=== PATIENT | female | born 1950 | race Caucasian/White ===

== ENCOUNTER → 2024-06-16 | Outpatient (CLI) | payer MEDICARE, BC, SELFPAY ==
[2024-06-16 08:22] LABS: Collection Type, Urine Clean Catch
[2024-06-16 09:09] LABS: Bilirubin,Urine Negative (Negative); Blood,Urine Negative (Negative); Clarity,Urine Clear (Clear/Hazy); Color,Urine Lt-Yellow (Lt Yel-Yel); Glucose, Urine Negative (Negative); Ketones,Urine Negative (Negative); Leukocyte Esterase,Urine Negative (Negative); Nitrite,Urine Negative (Negative); PH,Urine 6.5 (5.0-7.0); Protein,Urine Negative (Neg - Trace); RBC,Urine 3 /hpf (0-3); Specific Gravity,Urine 1.015 (1.001-1.035); Squamous Epithelial Cell,Urine 1 /hpf (0-5); Urobilinogen,Urine Negative mg/dL (0.0-1.0); WBC,Urine < 1 /hpf (0-5)
[2024-06-16 09:11] LABS: Basophils # (Auto) 0.1 Thou/mm3 (0.0-0.2); Basophils % (Auto) 1 % (0-2.5); Eosinophils # (Auto) 0.1 Thou/mm3 (0.0-0.5); Eosinophils % (Auto) 1 % (0-10); Hematocrit 39.1 % (36.0-46.0); Hemoglobin 12.6 g/dL (12.0-16.0); Immature Granulocytes % (Auto) 1 % (0-0); Immature Granulocytes Auto 0.05 Thou/mm3 (0.00-0.00); Lymphocytes # (Auto) 1.5 Thou/mm3 (1.0-4.8); Lymphocytes % (Auto) 18 % (10-50); Mean Corpuscular HGB Conc 32.2 g/dl (31.0-37.0); Mean Corpuscular Hemoglobin 28.8 pg (25.0-35.0); Mean Corpuscular Volume 90 fL (80-100); Monocytes # (Auto) 0.7 Thou/mm3 (0.0-0.8); Monocytes % (Auto) 8 % (0-12); Neutrophils # (Auto) 5.9 Thou/mm3 (1.8-7.7); Neutrophils % (Auto) 71 % (37-80); Nucleated Red Blood Cell % 0 /100 WBC (0); Platelet Count 424 Thou/mm3 (140-440); RDW Standard Deviation 46.2 fL (36.4-46.3); Red Blood Count 4.37 Miln/mm3 (4.00-5.20); White Blood Count 8.3 Thou/mm3 (3.6-11.0)
[2024-06-16 09:25] LABS: Parathyroid Hormone Intact 70.7 pg/ml (18.5-88.0)
[2024-06-16 09:29] LABS: Alanine Aminotransferase 26 U/L (10-49); Albumin, Serum 4.7 gm/dL (3.4-4.8); Albumin/Globulin Ratio 2.6 (1.2-2.2); Alkaline Phosphatase 108 U/L (46-116); Anion Gap 6 (7-16); Aspartate Amino Transferase 28 U/L (0-34); BUN/Creatinine Ratio 20 Ratio (12-20); Bilirubin,Total 0.6 mg/dL (0.3-1.2); Blood Urea Nitrogen 16 mg/dL (9-23); Calcium 9.9 mg/dL (8.3-10.6); Calcium (Corrected) 9.9 mg/dL (8.5-10.1); Carbon Dioxide 29.4 mMol/L (20.0-31.0); Cardiac Risk Estimate 2.7 RATIO (3.7-5.6); Chloride 98 mMol/L (98-107); Cholesterol 161 mg/dL (132-200); Creatinine (Component) 0.8 mg/dL (0.6-1.3); Globulin 1.8 gm/dL (2.3-3.5); Glucose 95 mg/dL (74-106); HDL Cholesterol 60 mg/dL (40-60); LDL Cholesterol,Calculated 86 mg/dL (0-130); Osmolality,Calculated 267 (275-295); Potassium 4.6 mMol/L (3.4-5.1); Sodium 133 mMol/L (136-145); Thyroid Stimulating Hormone 1.59 uIU/mL (0.55-4.78); Total Protein 6.5 gm/dL (5.7-8.2); Triglycerides 77 mg/dL (30-150); eGFR > 60 See Note
[2024-06-16 09:40] LABS: Vitamin D 25 Hydroxy Total 35.7 ng/mL (7.3-40.2)
== END | disposition home or self-care (01) ==
LOC: COPL 07:27
PROVIDERS: PCP Internal Medicine; Referring Provider Internal Medicine; Visit Provider Internal Medicine
DX: I10 Essential (primary) hypertension (principal); E78.5 Hyperlipidemia, unspecified; E21.0 Primary hyperparathyroidism; E55.9 Vitamin D deficiency, unspecified
CPT/HCPCS: 36415; 80053; 80061; 81001; 82306; 83970; 84443; 85025

== ENCOUNTER → 2024-12-14 | Outpatient (CLI) | payer MEDICARE, BC, SELFPAY ==
[2024-12-14 08:15] LABS: Collection Type, Urine Clean Catch
[2024-12-14 08:55] LABS: Basophils # (Auto) 0.1 Thou/mm3 (0.0-0.2); Basophils % (Auto) 2 % (0-2.5); Eosinophils # (Auto) 0.1 Thou/mm3 (0.0-0.5); Eosinophils % (Auto) 1 % (0-10); Hematocrit 35.8 % (36.0-46.0); Hemoglobin 12.1 g/dL (12.0-16.0); Immature Granulocytes % (Auto) 1 % (0-0); Immature Granulocytes Auto 0.03 Thou/mm3 (0.00-0.00); Lymphocytes # (Auto) 1.1 Thou/mm3 (1.0-4.8); Lymphocytes % (Auto) 17 % (10-50); Mean Corpuscular HGB Conc 33.8 g/dl (31.0-37.0); Mean Corpuscular Hemoglobin 29.2 pg (25.0-35.0); Mean Corpuscular Volume 87 fL (80-100); Monocytes # (Auto) 0.6 Thou/mm3 (0.0-0.8); Monocytes % (Auto) 10 % (0-12); Neutrophils # (Auto) 4.4 Thou/mm3 (1.8-7.7); Neutrophils % (Auto) 70 % (37-80); Nucleated Red Blood Cell % 0 /100 WBC (0); Platelet Count 394 Thou/mm3 (140-440); Red Blood Count 4.14 Miln/mm3 (4.00-5.20); White Blood Count 6.3 Thou/mm3 (3.6-11.0)
[2024-12-14 08:58] LABS: Bilirubin,Urine Negative (Negative); Blood,Urine Negative (Negative); Clarity,Urine Clear (Clear/Hazy); Color,Urine Lt-Yellow (Lt Yel-Yel); Glucose, Urine Negative (Negative); Ketones,Urine Negative (Negative); Leukocyte Esterase,Urine Negative (Negative); Nitrite,Urine Negative (Negative); PH,Urine 6.5 (5.0-7.0); Protein,Urine Negative (Neg - Trace); RBC,Urine 2 /hpf (0-3); Specific Gravity,Urine 1.012 (1.001-1.035); Squamous Epithelial Cell,Urine < 1 /hpf (0-5); Urobilinogen,Urine Negative mg/dL (0.0-1.0); WBC,Urine < 1 /hpf (0-5)
[2024-12-14 09:05] LABS: Alanine Aminotransferase 22 U/L (10-49); Albumin, Serum 4.2 gm/dL (3.4-4.8); Albumin/Globulin Ratio 2.8 (1.2-2.2); Alkaline Phosphatase 123 U/L (46-116); Anion Gap 10 (7-16); Aspartate Amino Transferase 29 U/L (0-34); BUN/Creatinine Ratio 19 Ratio (12-20); Bilirubin,Total 0.5 mg/dL (0.3-1.2); Blood Urea Nitrogen 13 mg/dL (9-23); Calcium 8.8 mg/dL (8.3-10.6); Calcium (Corrected) 8.8 mg/dL (8.5-10.1); Carbon Dioxide 27.2 mMol/L (20.0-31.0); Cardiac Risk Estimate 2.3 RATIO (3.7-5.6); Chloride 99 mMol/L (98-107); Cholesterol 139 mg/dL (132-200); Creatinine (Component) 0.7 mg/dL (0.6-1.3); Globulin 1.5 gm/dL (2.3-3.5); Glucose 103 mg/dL (74-106); HDL Cholesterol 60 mg/dL (40-60); LDL Cholesterol,Calculated 70 mg/dL (0-130); Osmolality,Calculated 272 (275-295); Potassium 4.3 mMol/L (3.4-5.1); Sodium 136 mMol/L (136-145); Thyroid Stimulating Hormone 1.27 uIU/mL (0.55-4.78); Total Protein 5.7 gm/dL (5.7-8.2); Triglycerides 45 mg/dL (30-150); eGFR > 60 See Note
[2024-12-14 09:06] LABS: Vitamin D 25 Hydroxy Total 41.3 ng/mL (7.3-40.2)
[2024-12-14 09:07] LABS: Parathyroid Hormone Intact 60.8 pg/ml (18.5-88.0)
== END | disposition home or self-care (01) ==
LOC: COPL 07:44
PROVIDERS: PCP Internal Medicine; Referring Provider Internal Medicine; Visit Provider Internal Medicine
DX: E21.0 Primary hyperparathyroidism (principal); E55.9 Vitamin D deficiency, unspecified; E78.5 Hyperlipidemia, unspecified; I10 Essential (primary) hypertension
CPT/HCPCS: 36415; 80053; 80061; 81001; 82306; 83970; 84443; 85025

== ENCOUNTER 2024-12-22 16:29 | Inpatient (IN) | payer MEDICARE, BC, SELFPAY ==
[2024-12-22] VITALS (15 sets, daily range): BP systolic 142–180; BP diastolic 68–112; PULSE 101–133; RESP 18–90; TEMP 36.7–37.7; O2SAT 92–96; BMI 26.6
--- NOTE | 2024-12-22 16:32 | EKG_ITS ---
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
--- NOTE | 2024-12-22 16:32 | XR_ITS ---
Examination: AP chest single view TECHNIQUE: AP chest single view Date and time: December 22, 2024 1903 hours Comparison October 16, 2014 INDICATIONS: Sepsis alert today FINDINGS: Diffuse significant left lung pneumonia Mild prominence left ventricle Mild vascular congestion Prominent osteopenia IMPRESSION: Diffuse significant left lung pneumonia
--- NOTE | 2024-12-22 16:46 | EDNOTE_ITS ---
<Statement entered by Chaya Ramirez MD - 12/23/24 18:28> As co-signing physician, I was present and available for consult prn. I concur with the plan and care as documented by the midlevel provider. Altered Mental Status RME/HPI General Chief Complaint: Altered Mental Status Stated Complaint: ALTERED MENTAL STATUS Time Seen by Provider: 12/22/24 16:32 Arrival date/time: 12/22/24 16:29 RME / HPI RME / HPI narrative: 74-year-old female patient with significant history of COPD hypertension, was brought in by EMS for evaluation regarding worsening cough. Patient is having worsening cough for the last 4 days, associated with fever, poor appetite, not feeling well, and mild confusion. Patient denies any chest pain, denies any abdominal pain, but also complained of diarrhea nonbloody. Denies any vomiting. On my initial evaluation patient was noted to be febrile and tachycardic. Sepsis alert was initiated right away. Related Data Home Medications ?Medication ?Instructions ?Recorded ?Confirmed atorvastatin 10 mg tablet (Lipitor) 10 mg PO HS High C holesterol #0 04/19/15 tabs Atorvastatin Calcium 10 ##90 02/19/16 Benazepril Hcl/Hctz 20-12.5 * 20 ##30 02/19/16 (LOTENSIN HCT 20-12.5 *) lorazepam 0.5 mg tablet 0.5 ##30 02/19/16 Previous Rx's ?Medication ?Instructions ?Recorded Hydrocodone/Acetaminophen * (NORCO 1 tab PO Q6H PRN AB DOMINAL PAIN 02/20/16 5/325 *) #20 tabs Allergies Allergy/AdvReac Type Severity Reaction Status Date / Time labetalol Allergy Severe SIZURES Verified 02/19/16 19:51 TAPE AdvReac Intermediate blisters Uncoded 02/19/16 15:15 Review of Systems Review of Systems Narrative Review of Systems: Review of system reviewed and within normal limits except mentioned in HPI ED Exam Narrative Physical exam: VITAL SIGNS: Reviewed. GENERAL APPEARANCE: Alert and interactive, follows commands, no acute distress, febrile HEAD AND FACE: Non-traumatic. ENT: PERRL, pink conjunctivitis, eyelid no trauma, Mucous membrane moist. NECK: Supple, nontender, no nuchal rigidity. CHEST: No tenderness, no crepitus, no paradoxical movement, no retractions. LUNGS: Clear, well ventilated, symmetric, no rales, no wheezing, no ronchi, no stridor, good breath sounds bilaterally. HEART: Tachycardic, no murmur, no gallops. ABDOMEN: Soft, positive bowel sounds, nondistended, no guarding, nontender, no rebound, no masses, RECTAL: Deferred. GENITAL: Deferred. NEUROLOGICAL: Gross motor function intact sensory function intact, Appropriate for age. MUSCULOSKELETAL: low back nontender, full range of motion. EXTREMITIES: Nontender, full range of motion. SKIN: Color pink, dry, no rash, no lacerations, no abrasions, no contusions. LYMPHATICS: Deferred. 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 12/22/24 16:32 Active Continuous Pulse Oximetry STAT Care 12/22/24 16:32 Completed Decision to Admit X1 Care 12/22/24 16:43 Completed EKG (ED ONLY) *Do not use* NOW Care 12/22/24 16:32 Completed In and Out Catheter X1PRN Care 12/22/24 16:32 Completed Insert IV NOW Care 12/22/24 16:32 Active NPO STAT Care 12/22/24 16:32 Active Strict Intake and Output Routine Care 12/22/24 16:32 Ordered EKG (ED Only) Stat Exams 12/22/24 16:32 Draft XR chest 1V SEPSIS PROTOCOL Stat Exams 12/22/24 16:32 Completed B-Type Natriuretic Peptide Stat Lab 12/22/24 16:50 Completed Blood Culture (Lab) Stat Lab 12/22/24 16:53 Received CBC Stat Lab 12/22/24 16:50 Completed Comprehensive Metabolic Panel Stat Lab 12/22/24 16:50 Completed LDH (Lactate Dehydrogenase) Stat Lab 12/22/24 16:50 Completed Lactate (Lactic Acid) Stat Lab 12/22/24 16:50 Completed Lipase Stat Lab 12/22/24 16:50 Completed Magnesium Stat Lab 12/22/24 16:50 Completed Partial Thromboplastin Time Stat Lab 12/22/24 16:50 Completed Phosphorous Stat Lab 12/22/24 16:50 Completed Procalcitonin Stat Lab 12/22/24 16:50 Completed Prothrombin Time with INR Stat Lab 12/22/24 16:50 Completed Troponin I Stat Lab 12/22/24 16:50 Completed Urinalysis Stat Lab 12/22/24 18:43 Completed Urine Culture Stat Lab 12/22/24 18:43 Received Acetaminophen Tab [Tylenol ES Tab] Med 12/22/24 16:42 Discontinued 1,000 mg PO X1 ONE Azithromycin Inj [Zithromax Inj] 500 mg Med 12/22/24 16:43 Discontinued Sodium Chloride 0.9% 250 ml [Ns] 250 ml IV X1 Ringers Lactated 1000 ml [Lactated Ringers] 1,000 ml Med 12/22/24 16:43 Discontinued IV 999 mls/hr cefTRIAXone/D5w 1gm IV premix [Rocephin/D5w 1gm IV Med 12/22/24 16:33 Discontinued premix] 1 gm in 50 ml IV X1 Oxygen Delivery NOW RT 12/22/24 16:32 Active Vital Signs Vital signs: Vital Signs Pulse Rate 133 H 12/22/24 16:38 Altered Mental Status MDM Narrative MDM Narrative:: 74-year-old female patient with significant history of COPD hypertension, was brought in by EMS for evaluation regarding worsening cough. Patient is having worsening cough for the last 4 days, associated with fever, poor appetite, not feeling well, and mild confusion. Patient denies any chest pain, denies any abdominal pain, but also complained of diarrhea nonbloody. Denies any vomiting. On my initial evaluation patient was noted to be febrile and tachycardic. Sepsis alert was initiated right away. EKG as interpreted by me showed sinus tachycardia, ventricular rate of [address] segment elevation or depression noted. CBC showed 15.4 leukocytosis, sodium 124, magnesium 1.4 troponin 0.108 Pro-Skip 1.18 urinalysis initially the patient's presentation was very concerning for a multitude of possible potentially serious differential diagnosis including UTI, PID STD and Acute Pyelonephritis but after an in depth review of systems, focused physical exam and U/A showed significant WBC suggestive of UTI and appears to be safe for discharge and treatment as an outpatient. Chest x-ray with pneumonia Patient was given IV fluids, Tylenol, IV ceftriaxone and IV Zosyn. Case discussed with Dr. Costa who admitted the patient Patient data External records reviewed:: None Clinical information provided by:: patient Social determinants that could affect healthcare access:: none Patient has the following chronic illnesses:: Hypertension How is presenting disease/condition affected by chronic disease/condition?: exacerbated by Evaluation data The following diagnostics were reviewed and interpreted by me:: lab results and radiology exam(s) Lab and/or radiology exams considered but not ordered:: See results MDM Interpretation Summary: See results MDM Medications / Prescriptions Medications or Prescriptions considered but not ordered:: None Medication administrations:: Medication Administration History Acetaminophen (Acetaminophen 325 Mg Tablet) 650 mg PO Q6H PRN PRN Reason: PAIN 1-3 OR FEVER > 101 Stop: 01/21/25 17:58 Amlodipine Besylate (Amlodipine Besylate 5 Mg Tablet) 5 mg PO QDAY [facility] Stop: 01/22/25 08:59 Aspirin (Aspirin Ec 81 Mg Tabec) 81 mg PO DAILY BARI Stop: 01/21/25 21:19 Last Admin: 12/22/24 22:15 Dose: 81 mg Documented By: EE Enoxaparin Sodium (Enoxaparin Sod Inj 40 Mg/0.4 Ml Syringe) 40 mg SC QDAY [facility] Stop: 01/06/25 08:59 Famotidine (Famotidine Inj 10 Mg/Ml Vial 2 Ml) 20 mg IVP BID BARI Stop: 01/21/25 20:59 Last Admin: 12/22/24 22:14 Dose: 20 mg Documented By: EE Hydralazine HCl (Hydralazine Inj 20 Mg/Ml Vial) 10 mg IVP Q6HR PRN PRN Reason: SBP>170 Stop: 01/21/25 18:21 Hydralazine HCl (Hydralazine Hcl 25 Mg Tablet) 50 mg PO TID BARI Stop: 01/21/25 21:59 Last Admin: 12/22/24 22:15 Dose: 50 mg Documented By: EE Ceftriaxone Sodium/Dextrose (Rocephin/D5w 1gm Iv Premix) 1 gm in 50 mls @ 100 mls/hr IV QDAY [facility]I Stop: 12/30/24 08:59 Azithromycin 500 mg/ Sodium (Chloride) 250 mls @ 250 mls/hr IV QDAY@2100 [facility]I Stop: 12/30/24 20:59 Potassium Phosphate (Pot Phos 15 Mmol In Ns 250 Ml) 15 mmol in 250 mls @ 62.5 mls/hr IV Q4H BARI Stop: 12/23/24 02:11 Last Admin: 12/22/24 23:11 Dose: 62.5 mls/hr Documented By: Infusion: 12/22/24 22:31 Dose: Infused Documented By: Admin: 12/22/24 18:31 Dose: 62.5 mls/hr Documented By: DO Ipratropium [place] (Ipratropium Rt 0.5 Mg/ 2.5 Ml Nebu) 0.5 mg INH Q8HRRT BARI Stop: 01/21/25 21:59 Last Admin: 12/22/24 22:18 Dose: 0.5 mg Documented By: SIDNEY Levalbuterol HCl (Levalbuterol Rt 0.63 Mg/3 Ml Nebu) 0.63 mg INH Q8HR BARI Stop: 01/21/25 21:59 Last Admin: 12/22/24 22:18 Dose: 0.63 mg Documented By: SIDNEY Methylprednisolone Sodium Succinate (Methylprednisolone Sod Succ 40 Mg Vial) 40 mg IVP QDAY [facility] Stop: 12/29/24 18:14 Last Admin: 12/22/24 18:22 Dose: 40 mg Documented By: DO Ondansetron HCl (Ondansetron Inj 2 Mg/Ml Inj 2 Ml) 4 mg IV Q6H PRN; Protocol PRN Reason: NAUSEA OR VOMITING Stop: 01/21/25 17:58 Sennosides (Senna Tablet) 2 tab PO BID PRN; Protocol PRN Reason: CONSTIPATION Stop: 01/21/25 17:58 Valsartan (Valsartan 80 Mg Tablet) 80 mg PO DAILY [facility] Stop: 01/22/25 08:59 Discontinued Medications Acetaminophen (Acetaminophen 500 Mg Tablet) 1,000 mg PO X1 ONE Stop: 12/22/24 16:43 Last Admin: 12/22/24 16:56 Dose: 1,000 mg Documented By: DO Ceftriaxone Sodium/Dextrose (Rocephin/D5w 1gm Iv Premix) 1 gm in 50 mls @ 100 mls/hr IV X1 ONE Stop: 12/22/24 17:02 Last Infusion: 12/22/24 17:19 Dose: Infused Documented By: Admin: 12/22/24 16:58 Dose: 100 mls/hr Documented By: DO Azithromycin 500 mg/ Sodium (Chloride) 250 mls @ 250 mls/hr IV X1 ONE Stop: 12/22/24 17:42 Last Infusion: 12/22/24 18:18 Dose: Infused Documented By: Admin: 12/22/24 17:18 Dose: 250 mls/hr Documented By: SONA Lactated Ringer's (Lactated Ringers) 1,000 mls @ 999 mls/hr IV .Q1H1M ONE Stop: 12/22/24 17:43 Last Infusion: 12/22/24 18:00 Dose: Infused Documented By: Admin: 12/22/24 16:59 Dose: 999 mls/hr Documented By: DO Lactated Ringer's (Lactated Ringers) 1,000 mls @ 999 mls/hr IV .Q1H1M ONE Stop: 12/22/24 19:03 Last Infusion: 12/22/24 20:09 Dose: Infused Documented By: Admin: 12/22/24 18:24 Dose: 999 mls/hr Documented By: DO Magnesium Sulfate (Magnesium Sulfate Ivpb) 2 gm in 50 mls @ 25 mls/hr IV X1 ONE Stop: 12/22/24 20:11 Last Infusion: 12/22/24 20:32 Dose: Infused Documented By: Admin: 12/22/24 18:22 Dose: 25 mls/hr Documented By: DO Potassium Chloride (Kcl Ivpb) 10 meq in 100 mls @ 100 mls/hr IV X1 ONE Stop: 12/22/24 19:35 Last Admin: 12/22/24 19:00 Dose: Not Given Documented By: DO Non-Admin Reason: Cancelled by Provider Potassium Chloride (Potassium Chloride 20 Meq Tabcr) 40 meq PO X1 ONE Stop: 12/22/24 18:37 Last Admin: 12/22/24 19:24 Dose: 40 meq Documented By: EE Sodium Chloride (Sodium Chloride Rt 10% 15 Ml Nebu) 5 ml INH X1 ONE Stop: 12/22/24 18:07 Last Admin: 12/22/24 20:59 Dose: 5 ml Documented By: SIDNEY IV fluids, aspiration IV, Zithromax IV and Tylenol. Patient was also given potassium p.o. Consultations Consultation(s) initiated? (list below): No Diagnosis Differential diagnosis altered mental status: altered mental status and sepsis Most likely diagnosis given after review of the tests above:: Sepsis, pneumonia Admission Indicated Admission indicated?: not indicated Admission Request Was there a request for admission?: No Disposition Plan Disposition Plan: Admit Discharge Plan Plan Patient Disposition: Admit Acute Care w/in Hospital Problem List Clinical Impression: Sepsis, Pneumonia
[2024-12-22] MEDS: ACETAMINOPHEN 500 MG TABLET 1000 MG PO (16:56)
[2024-12-22] MEDS: cefTRIAXone/D5w 1gm IV premix 1 GM/50 ML BAG IV (16:58)
[2024-12-22] MEDS: RINGERS LACTATED 1000 ML 1,000 ML 999 ML IV ×2 (16:59→18:24)
[2024-12-22 17:02] LABS: Lactate (Lactic Acid) 1.7 mMol/L (0.4-2.0)
[2024-12-22 17:03] LABS: Basophils % (Auto) 0 % (0-2.5); Eosinophils % (Auto) 0 % (0-10); Hematocrit 37.1 % (36.0-46.0); Hemoglobin 13.5 g/dL (12.0-16.0); Immature Granulocytes % (Auto) 1 % (0-0); Immature Granulocytes Auto 0.09 Thou/mm3 (0.00-0.00); Lymphocytes # (Auto) 0.3 Thou/mm3 (1.0-4.8); Lymphocytes % (Auto) 2 % (10-50); Mean Corpuscular HGB Conc 36.4 g/dl (31.0-37.0); Mean Corpuscular Hemoglobin 28.7 pg (25.0-35.0); Mean Corpuscular Volume 79 fL (80-100); Monocytes # (Auto) 0.9 Thou/mm3 (0.0-0.8); Monocytes % (Auto) 6 % (0-12); Neutrophils # (Auto) 14.1 Thou/mm3 (1.8-7.7); Neutrophils % (Auto) 91 % (37-80); Nucleated Red Blood Cell % 0 /100 WBC (0); Platelet Count 311 Thou/mm3 (140-440); RDW Standard Deviation 39.5 fL (36.4-46.3); Red Blood Count 4.71 Miln/mm3 (4.00-5.20); White Blood Count 15.4 Thou/mm3 (3.6-11.0)
[2024-12-22] MEDS: AZITHROMYCIN INJ 500 MG in SODIUM CHLORIDE 0.9% 250 ML 250 ML 250 MG IV (17:18)
[2024-12-22 17:25] LABS: B-Type Natriuretic Peptide 153 pg/mL (0-100)
[2024-12-22 17:33] LABS: Alanine Aminotransferase 44 U/L (10-49); Albumin, Serum 4.3 gm/dL (3.4-4.8); Albumin/Globulin Ratio 1.7 (1.2-2.2); Alkaline Phosphatase 91 U/L (46-116); Anion Gap 13 (7-16); Aspartate Amino Transferase 103 U/L (0-34); BUN/Creatinine Ratio 19 Ratio (12-20); Bilirubin,Total 0.6 mg/dL (0.3-1.2); Blood Urea Nitrogen 19 mg/dL (9-23); Calcium 10.1 mg/dL (8.3-10.6); Calcium (Corrected) 10.1 mg/dL (8.5-10.1); Carbon Dioxide 24.4 mMol/L (20.0-31.0); Chloride 83 mMol/L (98-107); Estimated Creatinine Clearance 42.3 mL/min (>60); Globulin 2.5 gm/dL (2.3-3.5); Glucose 119 mg/dL (74-106); LDH (Lactate Dehydrogenase) 262 U/L (120-246); Lipase 31 U/L (12-53); Magnesium 1.4 mg/dL (1.6-2.6); Osmolality,Calculated 245 (275-295); Phosphorous 1.3 mg/dL (2.4-5.1); Potassium 2.8 mMol/L (3.4-5.1); Procalcitonin 1.18 ng/ml (0.0-0.49); Sodium 120 mMol/L (136-145); Total Protein 6.8 gm/dL (5.7-8.2); eGFR 59 See Note
[2024-12-22 17:45] LABS: Partial Thromboplastin Time 31.1 Seconds (22.0-36.0); Prothrombin Time 10.9 Seconds (9.0-12.2)
--- NOTE | 2024-12-22 18:09 | PD.RESHP ---
Documentation for date of: 12/22/24 [facility] History of Present Illness Chief complaint: AMS, weakness History of present illness: The patient is a 74-year-old female with a past medical history of hypertension, hyper parathyroidism and COPD, brought to emergency by ambulance, complaining of severe nausea and inability to eat or drink. Patient reported that she has not eaten in 4 days . Reported having cough with excessive phlegm production and fever for the past few days, reported nausea but no vomiting, did report diarrhea, multiple loose stools per day but denied blood in stools. Patient had reached out to primary care physician yesterday about excessive cough and was prescribed amoxicillin, but became concerned when patient became too weak and more lethargic than her baseline. At the time of evaluation, patient was able to give a brief history of her symptoms, is able to follow simple commands and is alert and oriented. The patient was also complaining of fever and excessive cough, mucus production for the past few days, was given outpatient amoxicillin by PCP yesterday, but condition deteriorated, per the patient is more lethargic today. Was brought to the emergency room by ambulance. EMS found patient saturating 90% on room air started her on 3 L nasal cannula oxygen which improved O2 sats to 94%. Sepsis alert was called in the emergency room, IV antibiotics given, blood and sputum cultures ordered, 2 L IV fluid boluses given. Initial labs show leukocytosis, tachycardia heart rate in the 130s, likely secondary to sepsis, Pro-Skip elevated, lactic acid 1.7. Past medical history: Primary yperparathyroidism, hypertension, COPD, hyperlipidemia, anxiety Past surgical history: History of hysterectomy Social history: Current smoker Review of Systems Review of Systems Narrative Review of Systems: General: Denies fevers or chills HEENT: Denies congestion or sore throat Heart: Denies chest pain or palpitations Lungs: See H/p for details Abdomen: See H/p for details Genitourinary: Denies frequency, urgency, dysuria, or hematuria Musculoskeletal: Denies joint pain, denies muscular pain Neurology: Denies any numbness, tingling Review of systems otherwise negative except what is mentioned above. Past Medical History Past Medical History CARDIAC: Positive Hypertension; Negative Congestive Heart Failure RESPIRATORY: Positive Chronic Obstructive Pulmonary Disease (COPD) GENITOURINARY: Negative Renal Disease ENDOCRINE: Negative Diabetes Mellitus Type 1 or Diabetes Mellitus Type 2 Social History SMOKING STATUS: Current every day smoker Exam Vital Signs Temp Pulse Resp BP Pulse Ox O2 Del Method 99.8 F 115 H 19 148/75 H 95 Room Air 12/22/24 18:03 12/22/24 18:03 12/22/24 18:03 12/22/24 18:03 12/22/24 18:03 12/22/24 18:03 Narrative Exam General: AOx3, cooperative but lethargic, GCS 15/15 Skin: Intact, no cyanosis or edema noted. HEENT: Atraumatic/normocephalic, ADELINE, neck supple Heart: RRR, S1 and S2 without clicks or murmurs Lungs: Rhonchi bilaterally on ascultation Abdomen: Soft, nontender. Bowel sounds present . Vascular: Peripheral pulses palpable Neuro: No focal neurological deficits noted. Results: Labs 12/22/24 16:50 12/22/24 16:50 Labs: Short CBC 12/22/24 Range/Units 16:50 WBC 15.4 H (3.6-11.0) Thou/mm3 Hgb 13.5 (12.0-16.0) g/dL Hct 37.1 (36.0-46.0) % Plt Count 311 D (140-440) Thou/mm3 BMP 12/22/24 16:50 Sodium 120 L Potassium 2.8 L Chloride 83 L Carbon Dioxide 24.4 BUN 19 Creatinine 1.0 Glucose 119 H Calcium 10.1 Cardiac Enzymes 12/22/24 Range/Units 16:50 Troponin I 0.130 H* (0.0-0.045) ng/mL Liver Function 12/22/24 Range/Units 16:50 Total Bilirubin 0.6 (0.3-1.2) mg/dL AST 103 H (0-34) U/L ALT 44 (10-49) U/L Alkaline Phosphatase 91 (46-116) U/L Albumin 4.3 (3.4-4.8) gm/dL Quality Measures Quality Measures VTE prophylaxis Advance care planning discussed with:: patient Medications Home Medications and Allergies Home Medications ?Medication ?Instructions ?Recorded ?Confirmed ?Type atorvastatin 10 mg tablet (Lipitor) 10 mg PO HS High Cholesterol #0 04/19/15 History tabs Atorvastatin Calcium 10 ##90 02/19/16 History Benazepril Hcl/Hctz 20-12.5 * 20 ##30 02/19/16 History (LOTENSIN HCT 20-12.5 *) lorazepam 0.5 mg tablet 0.5 ##30 02/19/16 History Allergies Allergy/AdvReac Type Severity Reaction Status Date / Time labetalol Allergy Severe SIZURES Verified 02/19/16 19:51 TAPE AdvReac Intermediate blisters Uncoded 02/19/16 15:15 Visit Medications Acetaminophen (Acetaminophen 325 Mg Tablet) 650 mg PO Q6H PRN PRN Reason: PAIN 1-3 OR FEVER > 101 Stop: 01/21/25 17:58 Enoxaparin Sodium (Enoxaparin Sod Inj 40 Mg/0.4 Ml Syringe) 40 mg SC QDAY [facility] Stop: 01/06/25 08:59 Famotidine (Famotidine Inj 10 Mg/Ml Vial 2 Ml) 20 mg IVP BID [facility]I Stop: 01/21/25 20:59 Lactated Ringer's (Lactated Ringers) 1,000 mls @ 999 mls/hr IV .Q1H1M ONE Stop: 12/22/24 19:03 Ceftriaxone Sodium/Dextrose (Rocephin/D5w 1gm Iv Premix) 1 gm in 50 mls @ 100 mls/hr IV QDAY [facility]I Stop: 12/30/24 08:59 Azithromycin 500 mg/ Sodium (Chloride) 250 mls @ 250 mls/hr IV QDAY [facility]I Stop: 12/30/24 08:59 Ipratropium [place] (Ipratropium Rt 0.5 Mg/ 2.5 Ml Nebu) 0.5 mg INH Q8HRRT BARI Stop: 01/21/25 21:59 Levalbuterol HCl (Levalbuterol Rt 0.63 Mg/3 Ml Nebu) 0.63 mg INH Q8HR BARI Stop: 01/21/25 21:59 Methylprednisolone Sodium Succinate (Methylprednisolone Sod Succ 40 Mg Vial) 40 mg IVP QDAY [facility]I Stop: 12/29/24 18:14 Ondansetron HCl (Ondansetron Inj 2 Mg/Ml Inj 2 Ml) 4 mg IV Q6H PRN; Protocol PRN Reason: NAUSEA OR VOMITING Stop: 01/21/25 17:58 Sennosides (Senna Tablet) 2 tab PO BID PRN; Protocol PRN Reason: CONSTIPATION Stop: 01/21/25 17:58 Sodium Chloride (Sodium Chloride Rt 10% 15 Ml Nebu) 5 ml INH X1 ONE Stop: 12/22/24 18:07 Discontinued Medications Acetaminophen (Acetaminophen 500 Mg Tablet) 1,000 mg PO X1 ONE Stop: 12/22/24 16:43 Last Admin: 12/22/24 16:56 Dose: 1,000 mg Ceftriaxone Sodium/Dextrose (Rocephin/D5w 1gm Iv Premix) 1 gm in 50 mls @ 100 mls/hr IV X1 ONE Stop: 12/22/24 17:02 Last Infusion: 12/22/24 17:19 Dose: Infused Azithromycin 500 mg/ Sodium (Chloride) 250 mls @ 250 mls/hr IV X1 ONE Stop: 12/22/24 17:42 Last Admin: 12/22/24 17:18 Dose: 250 mls/hr Lactated Ringer's (Lactated Ringers) 1,000 mls @ 999 mls/hr IV .Q1H1M ONE Stop: 12/22/24 17:43 Last Admin: 12/22/24 16:59 Dose: 999 mls/hr Assessment & Plan Problem List (1) Sepsis: Qualifiers: Sepsis acute organ dysfunction status: with acute organ dysfunction Sepsis type: sepsis due to unspecified organism Severe sepsis acute organ dysfunction type: encephalopathy Status: Acute Assessment and plan: Sepsis, associated with acute encephalopathy and acute hypoxic respiratory failure, secondary to respiratory infection, patient was previously complaining of fever and excessive cough, mucus production for the past few days, was given outpatient amoxicillin by PCP yesterday, but condition deteriorated, per the patient is more lethargic today. Was brought to the emergency room by ambulance. EMS found patient saturating 90% on room air started her on 3 L nasal cannula oxygen which improved O2 sats to 94%. Sepsis alert was called in the emergency room, IV antibiotics given, blood and sputum cultures ordered, 2 L IV fluid boluses given. Initial labs show leukocytosis, tachycardia heart rate in the 130s, likely secondary to sepsis, Pro-Skip elevated, lactic acid 1.7. ? IV ceftriaxone 1 g daily ? Azithromycin 500 Mg IV daily ? Follow blood and sputum cultures ? Pending influenza A/B and COVID test (2) Encephalopathy acute: Status: Acute Assessment and plan: Acute toxic and metabolic encephalopathy likely multifactorial in the setting of sepsis and hyponatremia and other electrolyte abnormalities. Patient is poor historian, she is able to give a brief description of her complaints at this point, but does seem lethargic but GCS 15/15, able to follow commands. Will consider hypertonic saline if worsening neurological status. (3) Hyponatremia with decreased serum osmolality: Status: Acute Assessment and plan: Serum sodium 120, patient has had prior lab values consistent with mild hyponatremia, last serum sodium On 12/14/2024 was 136, of note patient is also taking benazepril/hydrochlorothiazide, does seem clinically dehydrated, pending urine electrolytes. Received IV fluid boluses, will continue to monitor for worsening neurological status. ? Hold benazepril/hydrochlorothiazide ? Every 4 hours serum sodium checks ? Per oral fluid restriction to 1000 cc/day, received 2 L IV fluid bolus . ? Follow urine electrolytes, urine osmolarity ? Consider 3% hypertonic saline if continued downtrend in serum sodium and associated with worsening neurological status. (4) NSTEMI (non-ST elevated myocardial infarction): Status: Acute Assessment and plan: Likely type II NSTEMI, in the setting of sepsis, the patient denied having any chest pain, heaviness or discomfort. Noted elevated troponin 0.131, EKG negative for any ST segment changes, but shows sinus tachycardia with frequent premature beats. ? Trend troponin until peaked ? Repeat EKG and consider heparin drip if patient complains of severe chest pain. (5) COPD exacerbation: Status: Acute Assessment and plan: History of COPD, previously well-managed, does not take oxygen at home, now requiring 3 L NC O2 to maintain O2 sats above 90%. ? Continue antibiotics ? IV methylprednisone 40 mg daily ? Nebulization with lev albuterol and ipratropium every 8 hours scheduled (6) Transaminasemia: Status: Acute Assessment and plan: Isolated elevation of AST, likely in the setting of sepsis. Received IV fluid boluses, continue to monitor. (7) Electrolyte imbalance: Status: Acute Assessment and plan: #Hypomagnesemia #Hypophosphatemia #Hypokalemia ? Electrolyte repletion as indicated secondary to decreased p.o. intake, diuretics (8) Diarrhea: Status: Acute Assessment and plan: Reported having diarrhea for the past few days, associated nausea, but no vomiting denied hematemesis or melena. Reported she is unable to eat or drink for the past 4 days, is only able to eat parts of a muffin. , Reported having loose bowel movements denied noticing any blood. No abdominal tenderness on physical exam. ? Stool for WBCs ? Strict I's and O's, continue antibiotics, monitor for dehydration. Assessment Disposition: Inpatient telemetry monitoring DVT prophylaxis: Lovenox GI prophylaxis: Famotidine Diet: Renal diet with fluid restriction 1000 cc daily Lines: PIV CODE STATUS: Full Plan Plan of care discussed with attending physician Dr. uJlissa Szymanski PGY2 Attending Provider Attestation/Addendum Patient seen and examined with resident physician Dr. Szymanski. Note reviewed, agree with findings and recommendations. patient admitted with sepsis, elevated troponin and electrolyte imbalance. Will replace electrolytes, fluids, antibiotics.
[2024-12-22] MEDS: Magnesium Sulfate 2 GM Ivpb 2 GM/50 ML BAG IV (18:22)
[2024-12-22] MEDS: POT PHOS 15 mMol in NS 250 ML 15 MMOL/250 ML BAG 62.5 MMOL IV ×2 (18:31→23:11)
[2024-12-22 19:08] LABS: Collection Type, Urine Clean Catch; Squamous Epithelial Cell,Urine 0 /hpf (0-5)
[2024-12-22] MEDS: POTASSIUM CHLORIDE 20 mEq TABCR 40 MEQ PO (19:24)
[2024-12-22 19:28] LABS: Bilirubin,Urine Negative (Negative); Blood,Urine 1+ (Negative); Clarity,Urine Clear (Clear/Hazy); Color,Urine Yellow (Lt Yel-Yel); Glucose, Urine Negative (Negative); Ketones,Urine 1+ (Negative); Leukocyte Esterase,Urine Negative (Negative); Nitrite,Urine Negative (Negative); Protein,Urine 1+ (Neg - Trace); RBC,Urine 14 /hpf (0-3); Specific Gravity,Urine 1.019 (1.001-1.035); Transitional Epi Cells,Urine < 1 /hpf (0-5); Urobilinogen,Urine Negative mg/dL (0.0-1.0); WBC,Urine 1 /hpf (0-5)
[2024-12-22 19:35] LABS: Chloride,Urine Random 43.2 mMol/L (55.0-125.0); Potassium,Urine Random 64 mMol/L (12-62); Sodium,Urine Random 21.7 mMol/L (20.0-110.0)
[2024-12-22 19:55] LABS: Troponin I 0.132 ng/mL (0.0-0.045)
[2024-12-22] MEDS: SODIUM CHLORIDE RT 10% 15 ML NEBU 5 ML INH (20:59)
--- NOTE | 2024-12-22 21:13 | PC.RT ---
sputum sent to lab at this time.
--- NOTE | 2024-12-22 21:19 | PC.NURSE ---
CALLED DR. WATERS ABOUT PATIENTS TROP 0.132 AND BLOOD PRESSURE 180/86. DR [address] ORDERS.
[2024-12-22] MEDS: FAMOTIDINE INJ 10 MG/ML VIAL 2 ML 20 MG IVP (22:14)
[2024-12-22] MEDS: hydrALAZINE HCL 25 MG TABLET 50 MG PO (22:15)
[2024-12-22] MEDS: ASPIRIN EC 81 MG TABEC PO (22:15)
[2024-12-22] MEDS: IPRATROPIUM RT 0.5 MG/ 2.5 ML NEBU INH (22:18)
[2024-12-22] MEDS: LEVALBUTEROL RT 0.63 MG/3 ML NEBU INH (22:18)
[2024-12-22 22:48] LABS: Albumin, Serum 3.8 gm/dL (3.4-4.8); Anion Gap 12 (7-16); BUN/Creatinine Ratio 18 Ratio (12-20); Blood Urea Nitrogen 14 mg/dL (9-23); Calcium 9.4 mg/dL (8.3-10.6); Calcium (Corrected) 9.6 mg/dL (8.5-10.1); Carbon Dioxide 22.3 mMol/L (20.0-31.0); Chloride 90 mMol/L (98-107); Creatinine (Component) 0.8 mg/dL (0.6-1.3); Estimated Creatinine Clearance 52.8 mL/min (>60); Glucose 120 mg/dL (74-106); Osmolality,Calculated 251 (275-295); Phosphorous 3.4 mg/dL (2.4-5.1); Potassium 3.5 mMol/L (3.4-5.1); Sodium 124 mMol/L (136-145); Troponin I 0.108 ng/mL (0.0-0.045); eGFR > 60 See Note
[2024-12-23] VITALS (27 sets, daily range): BP systolic 148–178; BP diastolic 64–108; PULSE 91–168; RESP 18–90; TEMP 35.9–36.8; O2SAT 92–100; BMI 29.6; BMI 13.0
[2024-12-23 02:52] LABS: Sodium 126 mMol/L (136-145)
[2024-12-23] MEDS: DILTIAZEM 30 MG TABLET 60 MG PO ×4 (06:13→21:08)
[2024-12-23] MEDS: hydrALAZINE HCL 25 MG TABLET 50 MG PO ×3 (06:13→21:09)
[2024-12-23 06:34] LABS: Basophils % (Auto) 0 % (0-2.5); Eosinophils % (Auto) 0 % (0-10); Hematocrit 36.1 % (36.0-46.0); Hemoglobin 12.9 g/dL (12.0-16.0); Immature Granulocytes % (Auto) 1 % (0-0); Immature Granulocytes Auto 0.05 Thou/mm3 (0.00-0.00); Lymphocytes # (Auto) 0.2 Thou/mm3 (1.0-4.8); Lymphocytes % (Auto) 2 % (10-50); Mean Corpuscular HGB Conc 35.7 g/dl (31.0-37.0); Mean Corpuscular Hemoglobin 28.7 pg (25.0-35.0); Mean Corpuscular Volume 80 fL (80-100); Monocytes # (Auto) 0.2 Thou/mm3 (0.0-0.8); Monocytes % (Auto) 2 % (0-12); Neutrophils % (Auto) 95 % (37-80); Nucleated Red Blood Cell % 0 /100 WBC (0); Platelet Count 310 Thou/mm3 (140-440); RDW Standard Deviation 40.6 fL (36.4-46.3); White Blood Count 9.5 Thou/mm3 (3.6-11.0)
[2024-12-23 07:12] LABS: Alanine Aminotransferase 57 U/L (10-49); Alkaline Phosphatase 83 U/L (46-116); Anion Gap 14 (7-16); Aspartate Amino Transferase 129 U/L (0-34); BUN/Creatinine Ratio 20 Ratio (12-20); Bilirubin,Direct 0.2 mg/dL (0.0-0.3); Bilirubin,Total 0.4 mg/dL (0.3-1.2); Blood Urea Nitrogen 16 mg/dL (9-23); Calcium 9.7 mg/dL (8.3-10.6); Carbon Dioxide 24.3 mMol/L (20.0-31.0); Cardiac Risk Estimate 4.1 RATIO (3.7-5.6); Chloride 90 mMol/L (98-107); Cholesterol 94 mg/dL (132-200); Creatinine (Component) 0.8 mg/dL (0.6-1.3); Estimated Creatinine Clearance 55.6 mL/min (>60); Glucose 118 mg/dL (74-106); HDL Cholesterol 23 mg/dL (40-60); LDL Cholesterol,Calculated 52 mg/dL (0-130); Magnesium 1.8 mg/dL (1.6-2.6); Osmolality,Calculated 259 (275-295); Phosphorous 2.5 mg/dL (2.4-5.1); Potassium 3.3 mMol/L (3.4-5.1); Sodium 128 mMol/L (136-145); Total Protein 6.2 gm/dL (5.7-8.2); Triglycerides 96 mg/dL (30-150); eGFR > 60 See Note
[2024-12-23] MEDS: LEVALBUTEROL RT 0.63 MG/3 ML NEBU INH ×3 (07:34→23:00)
[2024-12-23] MEDS: IPRATROPIUM RT 0.5 MG/ 2.5 ML NEBU INH ×3 (07:34→23:00)
[2024-12-23 07:42] LABS: Troponin I 0.089 ng/mL (0.0-0.045)
--- NOTE | 2024-12-23 08:51 | ESPR_ITS ---
Documentation for date of: 12/23/24 Subjective Subjective Interval history: Patient examined at bedside today. No acute overnight events. Patient reports she is doing well, denying any chest pain at this time. Says that her breathing is improving. Denies any recent sick contacts. No other complaints at this time. Exam Vital Signs Temp Pulse Resp BP Pulse Ox O2 Del Method O2 Flow Rate 97.0 F 112 H 20 150/74 H 94 L Nasal Cannula 2 12/23/24 08:00 12/23/24 08:00 12/23/24 08:00 12/23/24 08:00 12/23/24 08:00 12/23/24 08:00 12/23/24 08:00 Narrative Exam General: AAOx3, NAD, overweight female, a bit unkempt HEENT: Moist mucous membranes, conjunctiva clear, EOMI, PERRLA, Cardiovascular: S1, S2, radial pulses +2 bilat, tachycardic, possible Ejection systolic murmur Pulmonary: Some wheezing heard on ausculation GI: No tenderness to light or deep palpitation, no guarding, rigidity, rebound tenderness or distension Extremities: No presence of trace or pitting edema in lower extremities bilaterally, dorsalis pedis pulses +2 bilaterally Neuro: AAOx3, no focal motor or sensory deficits in the UE or LE bilat Psych: Good judgement, thought and behavior Objective Labs 12/25/24 04:52 12/25/24 04:52 Labs: Laboratory Results - last 24 hr 12/22/24 12/22/24 12/22/24 16:50 18:43 19:07 WBC 15.4 H RBC 4.71 Hgb 13.5 Hct 37.1 MCV 79 L MCH 28.7 MCHC 36.4 RDW Std Deviation 39.5 Plt Count 311 D Neut % (Auto) 91 H Lymph % (Auto) 2 L Bath % (Auto) 6 Eos % (Auto) 0 Baso % (Auto) 0 Neut # (Auto) 14.1 H Lymph # (Auto) 0.3 L Bath # (Auto) 0.9 H Eos # (Auto) 0.0 Baso # (Auto) 0.0 Immature Gran # (Auto) 0.09 H Absolute Nucleated RBC 0.00 Immature Gran % 1 H Nucleated RBC % 0 PT 10.9 INR 1.0 APTT 31.1 Sodium 120 L Potassium 2.8 L Chloride 83 L Carbon Dioxide 24.4 Anion Gap 13 BUN 19 Creatinine 1.0 Estim Creat Clear Calc 42.3 L eGFR 59 L BUN/Creatinine Ratio 19 Glucose 119 H Calculated Osmolality 245 L Lactic Acid 1.7 Calcium 10.1 Corrected Calcium 10.1 Phosphorus 1.3 L Magnesium 1.4 L Total Bilirubin 0.6 Direct Bilirubin AST 103 H ALT 44 Alkaline Phosphatase 91 Lactate Dehydrogenase 262 H Troponin I 0.130 H* 0.132 H* B-Natriuretic Peptide 153 H Total Protein 6.8 Albumin 4.3 Globulin 2.5 Albumin/Globulin Ratio 1.7 Triglycerides Cholesterol LDL Cholesterol, Calc HDL Cholesterol Cholesterol/HDL Ratio Lipase 31 Procalcitonin 1.18 H TSH Ur Collection Type Clean Catch Urine Color Yellow Urine Clarity Clear Urine pH 6.0 Ur Specific [place] 1.019 Urine Protein 1+ A Urine Glucose (UA) Negative Urine Ketones 1+ A Urine Blood 1+ A Urine Nitrite Negative Urine Bilirubin Negative Urine Urobilinogen (Auto) Negative Ur Leukocyte Esterase Negative Urine RBC 14 H Urine WBC 1 Ur Squamous Epith Cells 0 Ur Transition Epith Cell < 1 Urine Bacteria None Ur Random Sodium 21.7 Ur Random Potassium 64 H Ur Random Chloride 43.2 L 12/22/24 12/23/24 12/23/24 22:07 02:12 06:00 WBC 9.5 D RBC 4.50 Hgb 12.9 Hct 36.1 MCV 80 MCH 28.7 MCHC 35.7 RDW Std Deviation 40.6 Plt Count 310 Neut % (Auto) 95 H Lymph % (Auto) 2 L [place] % (Auto) 2 Eos % (Auto) 0 Baso % (Auto) 0 Neut # (Auto) 9.0 H Lymph # (Auto) 0.2 L Bath # (Auto) 0.2 Eos # (Auto) 0.0 Baso # (Auto) 0.0 Immature Gran # (Auto) 0.05 H Absolute Nucleated RBC 0.00 Immature Gran % 1 H Nucleated RBC % 0 PT 11.0 INR 1.0 APTT Sodium 124 L 126 L 128 L Potassium 3.5 D 3.3 L Chloride 90 L 90 L Carbon Dioxide 22.3 24.3 Anion Gap 12 14 BUN 14 16 Creatinine 0.8 0.8 Estim Creat Clear Calc 52.8 L 55.6 L eGFR > 60 > 60 BUN/Creatinine Ratio 18 20 Glucose 120 H 118 H Calculated Osmolality 251 L 259 L Lactic Acid Calcium 9.4 9.7 Corrected Calcium 9.6 Phosphorus 3.4 2.5 Magnesium 1.8 Total Bilirubin 0.4 Direct Bilirubin 0.2 AST 129 H ALT 57 H Alkaline Phosphatase 83 Lactate Dehydrogenase Troponin I 0.108 H* 0.089 H* B-Natriuretic Peptide Total Protein 6.2 Albumin 3.8 D 4.0 Globulin Albumin/Globulin Ratio Triglycerides 96 Cholesterol 94 L LDL Cholesterol, Calc 52 HDL Cholesterol 23 L Cholesterol/HDL Ratio 4.1 Lipase Procalcitonin TSH 0.50 L Ur Collection Type Urine Color Urine Clarity Urine pH Ur Specific [place] Urine Protein Urine Glucose (UA) Urine Ketones Urine Blood Urine Nitrite Urine Bilirubin Urine Urobilinogen (Auto) Ur Leukocyte Esterase Urine RBC Urine WBC Ur Squamous Epith Cells Ur Transition Epith Cell Urine Bacteria Ur Random Sodium Ur Random Potassium Ur Random Chloride Quality Measures Quality Measures none Advance care planning discussed with:: patient Assessment & Plan Assessment Current Active Medications: Generic Name Dose Route Start Last Admin Trade Name Freq PRN Reason Stop Dose Admin Acetaminophen 650 mg 12/22/24 17:59 Acetaminophen 325 Mg Tablet PO 01/21/25 17:58 Q6H PRN PAIN 1-3 OR FEVER > 101 Aspirin 81 mg 12/22/24 21:20 12/22/24 22:15 Aspirin Ec 81 Mg Tabec PO 01/21/25 21:19 81 mg DAILY BARI Administration Diltiazem HCl 60 mg 12/23/24 12:00 Diltiazem 30 Mg Tablet PO 01/22/25 11:59 QID [facility] Enoxaparin Sodium 40 mg 12/23/24 09:00 Enoxaparin Sod Inj 40 Mg/0.4 Ml Syringe SC 01/06/25 08:59 QDAY BARI Famotidine 20 mg 12/22/24 21:00 12/22/24 22:14 Famotidine Inj 10 Mg/Ml Vial 2 Ml IVP 01/21/25 20:59 20 mg BID BARI Administration Hydralazine HCl 10 mg 12/22/24 18:22 Hydralazine Inj 20 Mg/Ml Vial IVP 01/21/25 18:21 Q6HR PRN SBP>170 Hydralazine HCl 50 mg 12/22/24 22:00 12/23/24 06:13 Hydralazine Hcl 25 Mg Tablet PO 01/21/25 21:59 50 mg TID BARI Administration Ceftriaxone Sodium/Dextrose 1 gm in 50 mls @ 100 mls/hr 12/23/24 09:00 Rocephin/D5w 1gm Iv Premix IV 12/30/24 08:59 QDAY BARI Azithromycin 500 mg/ Sodium 250 mls @ 250 mls/hr 12/23/24 21:00 Chloride IV 12/30/24 20:59 QDAY@2100 BARI Magnesium Sulfate 2 gm in 50 mls @ 25 mls/hr 12/23/24 08:50 Magnesium Sulfate Ivpb IV 12/23/24 10:49 X1 ONE Potassium Phosphate 22.5 mmol/ 507.5 mls @ 82.778 mls/hr 12/23/24 08:50 Sodium Chloride IV 12/23/24 14:57 X1 ONE Ipratropium [place] 0.5 mg 12/22/24 22:00 12/23/24 07:34 Ipratropium Rt 0.5 Mg/ 2.5 Ml Nebu INH 01/21/25 21:59 0.5 mg Q8HRRT BARI Administration Levalbuterol HCl 0.63 mg 12/22/24 22:00 12/23/24 07:34 Levalbuterol Rt 0.63 Mg/3 Ml Nebu INH 01/21/25 21:59 0.63 mg Q8HR BARI Administration Methylprednisolone Sodium Succinate 40 mg 12/22/24 18:15 12/22/24 18:22 Methylprednisolone Sod Succ 40 Mg Vial IVP 12/29/24 18:14 40 mg QDAY BARI Administration Ondansetron HCl 4 mg 12/22/24 17:59 Ondansetron Inj 2 Mg/Ml Inj 2 Ml IV 01/21/25 17:58 Q6H PRN NAUSEA OR VOMITING Protocol Potassium Chloride 40 meq 12/23/24 08:50 Potassium Chloride 20 Meq Tabcr PO 12/23/24 08:51 X1 ONE Sennosides 2 tab 12/22/24 17:59 Senna Tablet PO 01/21/25 17:58 BID PRN CONSTIPATION Protocol Valsartan 80 mg 12/23/24 09:00 Valsartan 80 Mg Tablet PO 01/22/25 08:59 DAILY BARI Plan Assessment: Suad is a 74 y/o female with PMHx of hypertension, parathyroid adenoma and COPD (not using home oxgen) who is admitted for AHRF 2/2 sepsis and COPD exacerbation. #Acute hypoxic respiratory failure #COPD exacerbation Gold COPD criteria: Gold E -> LAMA/LABA No oxygen usage at home This is patient's first COPD exacerbation Influenza and COVID negative Plan: ? Continue with IV Rocephin 1g and IV Zithromax 500 mg (12/22- ? IV methylprednisone 40 mg daily (12/22- ? Xopenex 0.63 mg and Atrovent 0.5 mg Q8HRRT ? Chest physio ? Robitussin as needed ? Spirometry outpatient ? Smoking cessation ? Nicotine patch as needed ? Oxygen saturation goal is between 88-92%, wean down oxygen as tolerated #Sepsis SOFA score: 0 points Direct bilirubin unremarkable, AST ALT elevated, creatinine unremarkable, no thrombocytopenia Pro-Skip 1.18, lactate 1.7, troponin 0.13 (now has resolved) Infection source likely L lung, seen on CXR Influenza and COVID negative Patient continuing to improve, will continue with current Abx regimen Plan: ? Continue with IV Rocephin 1g and IV Zithromax 500 mg (12/22- ? Follow-up blood cultures ? Follow-up sputum culture ? Follow-up MRSA screen #Sinus tachycardia Heart rate has been in the 120s and 130s Patient does have smoking history, EKG does not appear to be MAT Patient apparently has allergy to beta-agapito labetalol and was told not to be put on this medicine due to seizure threshold Patient not improving with Cardizem 60 mg twice daily, will increase Patient was tachycardic before receiving 1 dose of hydralazine, those 2 unlikely related processes On telemetry, there seemed to be some irregular rhythm, will need to r/o afib Plan: ? Cardiology consulted, appreciate recs ? Cardizem 60 mg by mouth 4 times daily ? Keep magnesium and potassium above 2 and 4 respectively ? Telemetry ? Xopenex and Atrovent for above ? Repeat EKG #Hypertension Chronic LDL 52, total cholesterol 92 Plan: ? Valsartan 160 mg by mouth every day ? Cardizem 60 mg 4 times daily by mouth as above ? Cardiac stratification #Hypoosmolar hypovolemic hyponatremia, improving Likely related to GI losses Na 120 -> 124 -> 126 -> 128 (First sodium was at 4pm 12/22) Plan: ? Renal panel follow-up 12 PM ? Trend with CMP ? Avoiding overcorrection 6 mEq within first 24 hours #Electrolyte imbalances #Hypomagnesemia #Hypophosphatemia #Hypokalemia Likely related to GI losses Plan: ? K-Phos IV 22.5 x 1 ? 40 mill equivalents of oral potassium ? 2 g magnesium IV #Elevated transaminases DDx: shock liver, infectious related or underlying [place] component AST 103 -> 129 ALT 44 -> 57 Plan: ? Trend CMP ? Treat underlying infection as above ? Liver ultrasound #Diarrhea, improving Plan: ? Follow-up stool for WBCs ? Strict I's and O's, continue antibiotics, monitor for dehydration. #Elevated TSH #History of parathyroid adenoma #History of thyroid nodules TSH 0.5 Seen on ultrasound in 2018 Plan: ? Free T4 #Acute encephalopathy, resolved #NSTEMI type II, likely related to demand ischemia, resolved #Health Maintenance Disposition: Telemetry DVT prophylaxis: Lovenox GI prophylaxis: Pepcid Diet: Renal CODE STATUS: Full Patient seen and care discussed with my attending physician, Dr. Julissa Saxena, PGY-1 Attending Provider Attestation/Addendum patient seen and examined with resident physician Dr. Trinidad. Note reviewed, agree with findings and recommendations. patient admitted with sepsis, elevated troponin and electrolyte imbalance. Will replace electrolytes, fluids, antibiotics. COPD exacerbation-on breathing treatments, Solu-Medrol. Tachycardia noted. On diltiazem. EKG showed atrial fibrillation. Dr. Nguyễn was called in.
--- NOTE | 2024-12-23 09:37 | EKG_ITS ---
[facility] Test Date: 2024-12-23 Pat Name: YARI SANCHEZ [facility] Gender[facility] Female [employer] Driver: ZEYNEP : 1950 Requested By: Vivi Saxena Order Number: [id number] Reading MD: Vivi Saxena Measurements Intervals [place] Rate: 109 P: [place]: QRS: 40 QRSD: 91 T: 33 QT: 315 QTc: 425 Interpretive Statements ATRIAL FIBRILLATION WITH RAPID VENTRICULAR RESPONSE MINIMAL ST DEPRESSION ABNORMAL RHYTHM ECG Compared to ECG 12/22/2024 16:47:28 Sinus tachycardia no longer present ST (T wave) deviation still present /store/S0/[id number]
--- NOTE | 2024-12-23 09:42 | XR_ITS ---
Examination: Abdomen sonogram, Limited Date and time of exam: December 23, 2024 1001 hours INDICATIONS: Elevated liver function tests on laboratory examination December 23, 2024 Technique: Real-time dunn scale transabdominal sonographic images of the upper abdomen obtained. Findings: Normal gallbladder Normal common bile duct 0.3 cm Pancreatic head 2.5 cm Liver 13.2 cm smooth contour no focal liver lesions Normal hepatopedal portal venous flow Patent IVC IMPRESSION: Normal gallbladder Normal common bile duct
[2024-12-23] MEDS: POTASSIUM CHLORIDE 20 mEq TABCR 40 MEQ PO (09:52)
[2024-12-23] MEDS: VALSARTAN 80 MG TABLET PO (09:52)
[2024-12-23] MEDS: cefTRIAXone/D5w 1gm IV premix 1 GM/50 ML BAG IV (09:53)
[2024-12-23] MEDS: ENOXAPARIN SOD INJ 40 MG/0.4 ML SYRINGE SC (09:53)
[2024-12-23] MEDS: FAMOTIDINE INJ 10 MG/ML VIAL 2 ML 20 MG IVP ×2 (09:53→21:08)
[2024-12-23] MEDS: POTASSIUM PHOS 22.5 MMOL in SODIUM CHLORIDE 0.9% 500 ML 500 ML 82.778 MMOL IV (09:54)
[2024-12-23] MEDS: Magnesium Sulfate 2 GM Ivpb 2 GM/50 ML BAG IV (09:54)
[2024-12-23] MEDS: ASPIRIN EC 81 MG TABEC PO (09:55)
--- NOTE | 2024-12-23 10:11 | PC.NURSE ---
Called to Dr. Shar davalos EKG reading Afib RVR rate 109, no changes made at this time. Dr. davalos pt on Diltiazem PO 60 mg QID last dose around 15.
--- NOTE | 2024-12-23 10:14 | ECHO_ITS ---
Transthoracic Echo Report Ht (in): 61 Wt (lb): 156 Exam Location: Echo Lab Status: Inpatient Ditch Rider: Chuyita Bazzi Indications: Procedure Performed: BP: 165 / 81 HR: 65 MEASUREMENTS (Male / Female) Normal Values 2D ECHO LV Diastolic Diameter PLAX 3.8 cm 4.2 - 5.9 / 3.9 - 5.3 cm LV Systolic Diameter PLAX 2.6 cm IVS Diastolic Thickness 1.1 cm 0.6 - 1.0 / 0.6 - 0.9 cm LVPW Diastolic Thickness 1.1 cm 0.6 - 1.0 / 0.6 - 0.9 cm LV Relative Wall Thickness 0.6 LVOT Diameter 1.7 cm LA Systolic Diameter LX 3.4 cm 3.0 - 4.0 / 2.7 - 3.8 cm LV Ejection Fraction MOD BP 46.4 % >= 55 % LV Cardiac Index MOD BP 1502.0 cm?/min?m? LV Ejection Fraction MOD 4C 34.1 % LV Cardiac Index MOD 4C 1065.0 cm?/min?m? LV Ejection Fraction 4C AL 34.1 % LV Cardiac Index 4C AL 1102.9 cm?/min?m? LV Ejection Fraction MOD 2C 56.9 % LV Cardiac Index MOD 2C 1880.2 cm?/min?m? LV Ejection Fraction 2C AL 57.0 % LV Cardiac Index 2C AL 1953.3 cm?/min?m? LA Volume Index 21.2 cm?/m? 16 - 28 cm?/m? DOPPLER AV Peak Velocity 156.5 cm/s AV Peak Gradient 9.8 mmHg AV Mean Gradient 4.5 mmHg AV Velocity Time Integral 27.7 cm LVOT Peak Velocity 140.0 cm/s LVOT Peak Gradient 7.8 mmHg LVOT Velocity Time Integral 29.7 cm LVOT Cardiac Index 2475.6 cm?/min?m? AV Area Cont Eq vti 2.4 cm? AV Area Cont Eq pk 2.0 cm? MV Area PHT 6.9 cm? Mitral E Point Velocity 69.8 cm/s Mitral A Point Velocity 110.0 cm/s Mitral E to A Ratio 0.6 LV E' Lateral Velocity 9.9 cm/s Mitral E to LV E' Lateral Ratio 7.1 LV E' Septal Velocity 8.7 cm/s Mitral E to LV E' Septal Ratio 8.0 PV Peak Velocity 164.0 cm/s PV Peak Gradient 10.8 mmHg FINDINGS Left Ventricle Normal left ventricular size. Mild LVH. Global left ventricular systolic function is mildly decreased. The ejection fraction is visually estimated at 40-45%. There is grade I diastolic dysfunction of the left ventricle (impaired relaxation pattern). Right Ventricle The right ventricular size is mildy increased with normal systolic function. Left Atrium The left atrium is normal by two-dimensional, color flow and Doppler imaging with no structural abnormalities, no thrombus formation present. Right Atrium The right atrium is normal by two-dimensional imaging, color flow and Doppler imaging with no structural abnormalities, no thrombus formation present. Atrial Septum The interatrial septum appears normal with no evidence of a shunt. Aorta The aorta is normal by two-dimensional, color flow and Doppler interrogation. Mitral Valve The mitral valve is normal by two-dimensional, color flow and Doppler interrogation. Trace mitral regurgitation. Aortic Valve The aortic valve is trileaflet and normal by two-dimensional, color flow and Doppler interrogation. Trace aortic valve regurgitation. Tricuspid Valve The tricuspid valve is normal by two-dimensional, color flow and Doppler interrogation. There is trace tricuspid valve regurgitation. Pulmonic Valve The pulmonic valve is not well visualized. There is no significant pulmonic valve regurgitation. Vessels The pulmonary artery appears normal. The inferior vena cava pulmonary and hepatic veins appear normal. Pericardium The pericardium is normal by two-dimensional imaging. There is no significant pericardial effusion. CONCLUSIONS Indication: Afib Normal LV size. Mild LVH. Global LV systolic function is mildly decreased. Estimated EF at 40-45%. There is grade I diastolic dysfunction. The RV size is mildy increased with normal systolic function. Trace mitral and trace tricuspid regurgitation Xenia Nguyễn (Electronically Signed) Final Date: 25 December 2024 14:45
[2024-12-23 11:06] LABS: Glucose Estimated Average 108 mg/dL (80-131); Hemoglobin A1C 5.4 % Hgb (4.8-6.0)
[2024-12-23 11:33] LABS: Albumin, Serum 3.9 gm/dL (3.4-4.8); Anion Gap 14 (7-16); BUN/Creatinine Ratio 18 Ratio (12-20); Blood Urea Nitrogen 14 mg/dL (9-23); Carbon Dioxide 21.9 mMol/L (20.0-31.0); Chloride 90 mMol/L (98-107); Creatinine (Component) 0.8 mg/dL (0.6-1.3); Estimated Creatinine Clearance 55.6 mL/min (>60); Glucose 125 mg/dL (74-106); Osmolality,Calculated 254 (275-295); Phosphorous 2.2 mg/dL (2.4-5.1); Potassium 3.2 mMol/L (3.4-5.1); Sodium 126 mMol/L (136-145); eGFR > 60 See Note
[2024-12-23 11:34] LABS: Calcium (Corrected) 10.1 mg/dL (8.5-10.1)
--- NOTE | 2024-12-23 14:41 | PC.NURSE ---
According to MRSA screening form pt. does not fit criteria for Nasal mrsa test. Dr. Costa orders to ME.
[2024-12-23] MEDS: POTASSIUM CHLORIDE 20 mEq TABCR PO (14:51)
--- NOTE | 2024-12-23 16:40 | PC.SS ---
Patient is a 74-year old female admitted for sepsis. Patient and spouse confirmed demographic information. Patient lives with spouse and her son who help at home with her home care. Patient does not have any DME use at home. Patient followed by Julien Costa for primary care. Patient pharmacy of choice is [facility]. Patient d/c plan is home with home health services. No preferred agency. Patient has transportation by family at d/c. In case of an emergency her , Sixto to be contacted. D/c plan: home health Next of kin: spouse, Sixto [phone]
--- NOTE | 2024-12-23 16:57 | PC.NURSE ---
Addendum entered by Darby Chacon RN 12/23/24 18:46: Correction: HR 130-160 Original Note: Dr. Myles aware pt. HR went up to 130-130 bpm in Afib. orders Diltiazem 20 mg IVP x1 and orders to give PO dose as well.
[2024-12-23] MEDS: DILTIAZEM INJ 5 MG/ML VIAL 5 ML 20 MG IV (17:03)
--- NOTE | 2024-12-23 17:12 | ESCONSULT_ITS ---
RE: YARI SANCHEZ : 1950 DATE OF CONSULTATION: 12/23/2024 CONSULTING PHYSICIANS: Julien Costa MD and Becca Szymanski MD REASON FOR CONSULTATION: Evaluation of atrial fibrillation. HISTORY OF PRESENT ILLNESS: The patient is a 74-year-old female who is very well known to me with longstanding history of hypertension, hyperparathyroidism, and chronic obstructive lung disease. She came to the emergency room by ambulance because of severe weakness, nausea, inability to eat and drink for the last 4 days. According to the , she was not able to get up. She was having severe cough, excessive phlegm production, fever over the last few days, and nausea, but no vomiting and also diarrhea was reported with loose stools. The patient is extremely weak. Both lower extremities were very weak and lethargic and came to the hospital with these symptoms, found to have pneumonia and initially the patient was having desaturation, but now saturating well on nasal cannula. Sepsis alert was called. The patient was given IV antibiotics. Blood cultures and sputum cultures were obtained. Two liters of IV fluids were given. Initial labs showed leukocytosis, tachycardia 130 heart rate and white count was elevated. Procalcitonin was also elevated. Lactic acid was elevated. The patient is improving with antibiotics and fluids and she is feeling a little better now. While she is on a monitor, she developed atrial fibrillation with rapid ventricular response 110 and 120 and was placed on diltiazem 60 mg every 4 hours, appears to be controlled rate. In fact, she is back in sinus rhythm. Of note, she is also hyponatremic 124 and now is 128, positive SIADH, mild hypokalemia, electrolyte imbalance. Renal function is normal. White count on admission was 15.4 and hemoglobin 13 and the lab data otherwise unremarkable. Today, the white count is now at 9.5. ALLERGIES: NONE. MEDICATIONS: The patient is taking; 1. Atorvastatin 10 mg daily. 2. Hydrocodone for pain. 3. Benazepril-HCTZ 20/12.5 for hypertension. 4. Lorazepam for anxiety. PAST MEDICAL HISTORY: Hypertension, hyperparathyroidism, and history of anxiety. SOCIAL HISTORY: , lives with , does not smoke, drinking or use alcoholic beverages. FAMILY HISTORY: Noncontributory. PHYSICAL EXAMINATION: GENERAL: Well-nourished, acutely-ill, chronically-ill female, morbidly obese, alert and awake, in no acute distress. VITAL SIGNS: Height 5 feet 1 inch, weight is 156 pounds. HEENT: Head is atraumatic and normocephalic. Eyes: Normal. ENT: Normal. NECK: Supple. No JVD. Carotid pulses felt but no bruits. CHEST: Symmetrical. LUNGS: Decreased breath sounds at the bases. HEART: S1 and S2 irregular. No murmurs. ABDOMEN: Obese, soft. EXTREMITIES: No edema. GENITOURINARY AND RECTAL: Not performed. NEUROLOGIC: Normal. DIAGNOSTIC DATA: Electrocardiogram yesterday showed evidence of sinus tachycardia, PACs. Today's EKG showed atrial fibrillation with rate controlled. Rhythm strips showed paroxysmal atrial fibrillation. She is going in and out of atrial fibrillation or possible multifocal tachycardia. IMPRESSION/ASSESSMENT: 1. Paroxysmal atrial Fibrillation. 2. Hypertension. 3. Pneumonia. 4. Sepsis possibly secondary to left lung pneumonia. 5. History of hyperparathyroidism. RECOMMENDATIONS: I agree with the present medical management. Diltiazem to be continued at 60 mg dose four times daily and change it to 240 mg dose later on. Continue with valsartan for now and increase the dose as tolerated for hypertension. If she continues have paroxysmal atrial fibrillation, we will consider changing antiarrhythmic drug therapy amiodarone. We will get a cardiac echo Doppler study as well for assessment of LV function. Last cardiac workup in my office in 2015 showed a normal ejection fraction. Her [id number] score appears to be 3 hence, she will require anticoagulation with Eliquis, recommend starting her Eliquis 5 mg twice daily. Of note, she has slight elevation of troponin 0.1 and 0.08, positive type 2 troponin due to tachycardia, but we will trend this and if she has chest pain, we will consider treatment for ACS, but for now this appears to be type 2 troponin elevation. We would like to thank for referring this patient for cardiovascular evaluation. We will be glad to follow the patient with you. DT: 13:55:20 TT: 16:48:00 Ref: [id number] - TID: [id number]
--- NOTE | 2024-12-23 17:36 | PC.NURSE ---
Addendum entered by Darby Chacon RN 12/23/24 18:46: Dr. Myles orders to continue with Po Diltiazem while IV amiodarone is running. Original Note: Called to Dr. Myles to notify that pt. HR remains Afib between 130s-160s. Orders amiodarone bolus and drip protocol.
[2024-12-23] MEDS: AMIODARONE 150 MG IVPB 150 MG/100 ML BAG 600 MG IV (17:51)
[2024-12-23] MEDS: AMIODARONE 360 MG IVPB 360 MG/200 ML BAG 33.333 MG IV (18:10)
[2024-12-23] MEDS: AZITHROMYCIN INJ 500 MG in SODIUM CHLORIDE 0.9% 250 ML 250 ML 250 MG IV (21:08)
[2024-12-23] MEDS: APIXABAN 2.5 MG TABLET 5 MG PO (21:09)
[2024-12-23] MEDS: AMIODARONE 360 MG IVPB 360 MG/200 ML BAG 16.667 MG IV (23:35)
[2024-12-24] VITALS (18 sets, daily range): BP systolic 143–186; BP diastolic 57–104; PULSE 90–119; RESP 16–21; TEMP 35.9–36.2; O2SAT 90–99; BMI 30.2
[2024-12-24] MEDS: ACETAMINOPHEN 325 MG TABLET 650 MG PO ×2 (01:57→10:37)
[2024-12-24] MEDS: DILTIAZEM 30 MG TABLET 60 MG PO ×4 (05:21→20:33)
[2024-12-24] MEDS: hydrALAZINE HCL 25 MG TABLET 50 MG PO ×2 (05:22→20:32)
[2024-12-24 06:01] LABS: Basophils % (Auto) 0 % (0-2.5); Eosinophils % (Auto) 0 % (0-10); Hematocrit 34.2 % (36.0-46.0); Hemoglobin 12.3 g/dL (12.0-16.0); Immature Granulocytes % (Auto) 1 % (0-0); Immature Granulocytes Auto 0.17 Thou/mm3 (0.00-0.00); Lymphocytes # (Auto) 0.2 Thou/mm3 (1.0-4.8); Lymphocytes % (Auto) 1 % (10-50); Mean Corpuscular Hemoglobin 28.5 pg (25.0-35.0); Mean Corpuscular Volume 79 fL (80-100); Monocytes # (Auto) 0.9 Thou/mm3 (0.0-0.8); Monocytes % (Auto) 7 % (0-12); Neutrophils # (Auto) 11.4 Thou/mm3 (1.8-7.7); Neutrophils % (Auto) 90 % (37-80); Nucleated Red Blood Cell % 0 /100 WBC (0); Platelet Count 344 Thou/mm3 (140-440); RDW Standard Deviation 39.8 fL (36.4-46.3); Red Blood Count 4.31 Miln/mm3 (4.00-5.20); White Blood Count 12.6 Thou/mm3 (3.6-11.0)
[2024-12-24 06:22] LABS: Anion Gap 12 (7-16); BUN/Creatinine Ratio 19 Ratio (12-20); Blood Urea Nitrogen 15 mg/dL (9-23); Calcium 10.2 mg/dL (8.3-10.6); Carbon Dioxide 25.4 mMol/L (20.0-31.0); Chloride 92 mMol/L (98-107); Creatinine (Component) 0.8 mg/dL (0.6-1.3); Estimated Creatinine Clearance 56.2 mL/min (>60); Glucose 175 mg/dL (74-106); Osmolality,Calculated 263 (275-295); Potassium 3.1 mMol/L (3.4-5.1); Sodium 129 mMol/L (136-145); eGFR > 60 See Note
[2024-12-24] MEDS: FAMOTIDINE INJ 10 MG/ML VIAL 2 ML 20 MG IVP ×2 (09:06→20:33)
[2024-12-24] MEDS: ASPIRIN EC 81 MG TABEC PO (09:07)
[2024-12-24] MEDS: cefTRIAXone/D5w 1gm IV premix 1 GM/50 ML BAG IV (09:07)
[2024-12-24] MEDS: APIXABAN 2.5 MG TABLET 5 MG PO ×2 (09:07→20:33)
[2024-12-24] MEDS: VALSARTAN 80 MG TABLET PO (09:07)
[2024-12-24 10:06] LABS: Magnesium 1.7 mg/dL (1.6-2.6); Phosphorous 1.7 mg/dL (2.4-5.1)
[2024-12-24] MEDS: POTASSIUM CHLORIDE 20 mEq TABCR 40 MEQ PO ×2 (10:31→14:58)
[2024-12-24] MEDS: POTASSIUM PHOS 22.5 MMOL in SODIUM CHLORIDE 0.9% 500 ML 500 ML 82.778 MMOL IV (10:31)
--- NOTE | 2024-12-24 11:43 | PD.RESPRO ---
Documentation for date of: 12/24/24 Subjective Subjective Interval history: 12/23/2024: Patient examined at bedside today. No acute overnight events. Patient reports she is doing well, denying any chest pain at this time. Says that her breathing is improving. Denies any recent sick contacts. No other complaints at this time. 12/24/2024: Bedside today. No acute overnight events. Patient reports he is doing well, however is seeing people with costumes and hearing as if there is a constitution party outside. at bedside says that she may be experiencing some delusions at this time. She reports that she has been eating well as well. Patient is still in atrial fibrillation reviewed on telemetry. Patient continues to be on amnio drip and Eliquis for anticoagulation. Magnesium 1.7, phosphorus 1.7, potassium 3.1, chloride 92, sodium 129, BUN/creatinine 15 and 0.8 respectively. No other complaints this time. Exam Vital Signs Temp Pulse Resp BP Pulse Ox O2 Del Method O2 Flow Rate 97.0 F 109 H 21 H 154/87 H 90 L Room Air 2 12/24/24 07:53 12/24/24 09:07 12/24/24 07:53 12/24/24 09:07 12/24/24 07:53 12/24/24 07:53 12/24/24 04:00 Narrative Exam General: AAOx3, NAD, overweight female, a bit unkempt HEENT: Moist mucous membranes, conjunctiva clear, EOMI, PERRLA, Cardiovascular: S1, S2, radial pulses +2 bilat, irregularly irregular pulm:, possible Ejection systolic murmur Pulmonary: Some wheezing heard on ausculation GI: No tenderness to light or deep palpitation, no guarding, rigidity, rebound tenderness or distension Extremities: No presence of trace or pitting edema in lower extremities bilaterally, dorsalis pedis pulses +2 bilaterally Neuro: AAOx3, no focal motor or sensory deficits in the UE or LE bilat Psych: Good judgement, thought and behavior Objective Labs 12/25/24 04:52 12/25/24 04:52 Labs: Laboratory Results - last 24 hr 12/24/24 05:26 WBC 12.6 H RBC 4.31 Hgb 12.3 Hct 34.2 L MCV 79 L MCH 28.5 MCHC 36.0 RDW Std Deviation 39.8 Plt Count 344 D Neut % (Auto) 90 H Lymph % (Auto) 1 L [place] % (Auto) 7 Eos % (Auto) 0 Baso % (Auto) 0 Neut # (Auto) 11.4 H Lymph # (Auto) 0.2 L [place] # (Auto) 0.9 H Eos # (Auto) 0.0 Baso # (Auto) 0.0 Immature Gran # (Auto) 0.17 H Absolute Nucleated RBC 0.00 Immature Gran % 1 H Nucleated RBC % 0 Sodium 129 L Potassium 3.1 L Chloride 92 L Carbon Dioxide 25.4 Anion Gap 12 BUN 15 Creatinine 0.8 Estim Creat Clear Calc 56.2 L eGFR > 60 BUN/Creatinine Ratio 19 Glucose 175 H D Calculated Osmolality 263 L Calcium 10.2 Phosphorus 1.7 L Magnesium 1.7 Quality Measures Quality Measures none Advance care planning discussed with:: patient Assessment & Plan Assessment Current Active Medications: Generic Name Dose Route Start Last Admin Trade Name Freq PRN Reason Stop Dose Admin Acetaminophen 650 mg 12/22/24 17:59 12/24/24 10:37 Acetaminophen 325 Mg Tablet PO 01/21/25 17:58 650 mg Q6H PRN Administration PAIN 1-3 OR FEVER > 101 Apixaban 5 mg 12/23/24 21:00 12/24/24 09:07 Apixaban 2.5 Mg Tablet PO 01/22/25 20:59 5 mg BID BARI Administration Aspirin 81 mg 12/22/24 21:20 12/24/24 09:07 Aspirin Ec 81 Mg Tabec PO 01/21/25 21:19 81 mg DAILY BARI Administration Diltiazem HCl 60 mg 12/23/24 12:00 12/24/24 05:21 Diltiazem 30 Mg Tablet PO 01/22/25 11:59 60 mg QID BARI Administration Famotidine 20 mg 12/22/24 21:00 12/24/24 09:06 Famotidine Inj 10 Mg/Ml Vial 2 Ml IVP 01/21/25 20:59 20 mg BID BAIR Administration Guaifenesin 100 mg 12/23/24 09:56 Guaifenesin Syrup 200 Mg/10 Ml Udc PO 01/22/25 09:55 QID PRN COUGH Protocol Hydralazine HCl 10 mg 12/22/24 18:22 Hydralazine Inj 20 Mg/Ml Vial IVP 01/21/25 18:21 Q6HR PRN SBP>170 Hydralazine HCl 50 mg 12/22/24 22:00 12/24/24 05:22 Hydralazine Hcl 25 Mg Tablet PO 01/21/25 21:59 50 mg TID BARI Administration Ceftriaxone Sodium/Dextrose 1 gm in 50 mls @ 100 mls/hr 12/23/24 09:00 12/24/24 09:07 Rocephin/D5w 1gm Iv Premix IV 12/30/24 08:59 100 mls/hr QDAY BARI Administration Azithromycin 500 mg/ Sodium 250 mls @ 250 mls/hr 12/23/24 21:00 12/23/24 22:08 Chloride IV 12/30/24 20:59 Infused QDAY@2100 BARI Infusion Amiodarone HCl/Dextrose 360 mg in 200 mls @ 16.667 mls/hr 12/23/24 23:47 12/23/24 23:35 Nexterone Ivpb IV 12/24/24 23:46 16.667 mls/hr .Q12H BARI Administration Potassium Phosphate 22.5 mmol/ 507.5 mls @ 82.778 mls/hr 12/24/24 09:25 12/24/24 10:31 Sodium Chloride IV 12/24/24 15:32 82.778 mls/hr X1 ONE Administration Ipratropium [place] 0.5 mg 12/22/24 22:00 12/24/24 07:05 Ipratropium Rt 0.5 Mg/ 2.5 Ml Nebu INH 01/21/25 21:59 Not Given Q8HRRT BARI Levalbuterol HCl 0.63 mg 12/22/24 22:00 12/24/24 07:05 Levalbuterol Rt 0.63 Mg/3 Ml Nebu INH 01/21/25 21:59 Not Given Q8HR BARI Methylprednisolone Sodium Succinate 40 mg 12/22/24 18:15 12/24/24 09:06 Methylprednisolone Sod Succ 40 Mg Vial IVP 12/29/24 18:14 40 mg QDAY BARI Administration Nicotine 14 mg 12/23/24 09:56 Nicotine Patch 14 Mg/24 Hr Patch.Td24 TOP 01/22/25 09:59 QDAY PRN Nicotine Cravings Ondansetron HCl 4 mg 12/22/24 17:59 Ondansetron Inj 2 Mg/Ml Inj 2 Ml IV 01/21/25 17:58 Q6H PRN NAUSEA OR VOMITING Protocol Potassium Chloride 40 meq 12/24/24 14:00 Potassium Chloride 20 Meq Tabcr PO 12/24/24 14:01 X1 ONE Sennosides 2 tab 12/22/24 17:59 Senna Tablet PO 01/21/25 17:58 BID PRN CONSTIPATION Protocol Valsartan 80 mg 12/23/24 09:00 12/24/24 09:07 Valsartan 80 Mg Tablet PO 01/22/25 08:59 80 mg DAILY BARI Administration Plan Assessment: Suad is a 74 y/o female with PMHx of hypertension, parathyroid adenoma and COPD (not using home oxgen) who is admitted for AHRF 2/2 sepsis and COPD exacerbation. #Acute hypoxic respiratory failure #COPD exacerbation Gold COPD criteria: Gold E -> LAMA/LABA No oxygen usage at home This is patient's first COPD exacerbation Influenza and COVID negative Plan: ? Continue with IV Rocephin 1g and IV Zithromax 500 mg (12/22- ? IV methylprednisone 40 mg daily (12/22- ? Xopenex 0.63 mg and Atrovent 0.5 mg Q8HRRT ? Chest physio ? Robitussin as needed ? Spirometry outpatient ? Smoking cessation ? Nicotine patch as needed ? Oxygen saturation goal is between 88-92%, wean down oxygen as tolerated #Sepsis SOFA score: 0 points Direct bilirubin unremarkable, AST ALT elevated, creatinine unremarkable, no thrombocytopenia Pro-Skip 1.18, lactate 1.7, troponin 0.13 (now has resolved) Infection source likely L lung, seen on CXR Influenza and COVID negative Patient continuing to improve, will continue with current Abx regimen Blood cultures NG1D Plan: ? Continue with IV Rocephin 1g and IV Zithromax 500 mg (12/22- ? Follow-up blood cultures ? Follow-up sputum culture #New onset A-fib [id number]: 3 (need to determine if pt has HF, which could make her 4) HAS-BLED: Rate: 100s Rhythm: Irregularly irregular AC: Eliquis 5 mg BID Need to determine if this is paroxysmal Plan: ? Cardiology consulted, appreciate recs ? Cardizem 60 mg by mouth 4 times daily ? Finish Amio drip ? Eliquis 5 mg BID ? Keep magnesium and potassium above 2 and 4 respectively ? Telemetry ? Xopenex and Atrovent for above #Hospital acquired delirium Within the first 48 hours Patient is only receiving 40 mg of steroid, unlikely to cause delirium Patient seems to be experiencing visual hallucinations as well Plan: ? Melatonin at bedtime ? Bed to chair ? Avoid #Hypertension Chronic LDL 52, total cholesterol 92 A1c 5.4 Plan: ? Valsartan 160 mg by mouth every day ? Cardizem 60 mg 4 times daily by mouth as above ? Cardiac stratification #Hypoosmolar hypovolemic hyponatremia, improving Likely related to GI losses Na 129 today Plan: ? Trend with CMP #Electrolyte imbalances #Hypomagnesemia #Hypophosphatemia #Hypokalemia Likely related to GI losses and scheduled breathing tx Plan: ? K-Phos IV 22.5 x 1 ? 40 mill equivalents of oral potassium now and at 2 PM ? 2 g magnesium IV ? Neutra-Phos 2 packets #Elevated transaminases, improving DDx: shock liver, infectious related or underlying [place] component AST 103 -> 129 ALT 44 -> 57 Liver US unremarkable Plan: ? Trend CMP ? Treat underlying infection as above #Diarrhea, improving Plan: ? Follow-up stool for WBCs ? Strict I's and O's, continue antibiotics, monitor for dehydration. #Elevated TSH and Free thyroxine #History of parathyroid adenoma #History of thyroid nodules TSH 0.5; Free T4 1.8, unsure why T4 is janki okay tovated Seen on ultrasound in 2018 Plan: ? Consider rechecking TSH and T4 #Acute encephalopathy, resolved #NSTEMI type II, likely related to demand ischemia, resolved #Health Maintenance Disposition: Telemetry DVT prophylaxis: Eliquis GI prophylaxis: Pepcid Diet: Renal CODE STATUS: Full Patient seen and care discussed with my attending physician, Dr. Julissa Saxena, PGY-1 Attending Provider Attestation/Addendum patient seen and examined with resident physician Dr. Trinidad. Note reviewed, agree with findings and recommendations. patient admitted with sepsis, elevated troponin and electrolyte imbalance. Will replace electrolytes, fluids, antibiotics. COPD exacerbation-on breathing treatments, Solu-Medrol. Tachycardia noted. On diltiazem. EKG showed atrial fibrillation. Dr. Nguyễn was called in. Patient currently on amiodarone drip. at bedside.
[2024-12-24] MEDS: AMIODARONE 360 MG IVPB 360 MG/200 ML BAG 16.667 MG IV (11:58)
[2024-12-24] MEDS: POLYETHYLENE GLYCOL 17 GM PACKET PO (12:08)
[2024-12-24] MEDS: DOCUSATE SOD 100 MG CAPSULE PO (12:08)
[2024-12-24] MEDS: NAPH,KPH MBDB 1 PACKET (1.5 GM) 2 PACKET PO (12:08)
--- NOTE | 2024-12-24 12:20 | PC.NURSE ---
patient sbp 186/104 complaining of headache,called dr. sheth and made aware, new order to give hydralazine 10mg iv q 6h prn for sbp >186.
[2024-12-24] MEDS: hydrALAZINE INJ 20 MG/ML VIAL 10 MG IVP (12:25)
[2024-12-24] MEDS: Magnesium Sulfate 2 GM Ivpb 2 GM/50 ML BAG IV (12:57)
[2024-12-24] MEDS: LEVALBUTEROL RT 0.63 MG/3 ML NEBU INH ×2 (15:03→23:10)
[2024-12-24] MEDS: IPRATROPIUM RT 0.5 MG/ 2.5 ML NEBU INH ×2 (15:03→23:00)
[2024-12-24] MEDS: AMIODARONE HCL 200 MG TABLET PO (20:33)
[2024-12-24] MEDS: AZITHROMYCIN INJ 500 MG in SODIUM CHLORIDE 0.9% 250 ML 250 ML 100 MG IV (20:33)
[2024-12-24] MEDS: MELATONIN 3 MG TABLET PO (20:33)
--- NOTE | 2024-12-24 22:52 | ESPR_ITS ---
RE: YARI SANCHEZ : 1950 DATE OF SERVICE: 12/24/2024 SUBJECTIVE: The patient is a 74-year-old lady admitted to the hospital with multiple problems, pneumonia, has atrial fibrillation, rapid heart rate requiring IV amiodarone. We gave IV amiodarone, converted to sinus rhythm now maintaining very well, not complaining of any chest pain, shortness of breath, still has poor appetite. OBJECTIVE: Vital Signs: Her exam shows her vital signs are stable. Blood pressure is 160/90, pulse rate 97, respirations 16, temperature is normal. HEENT: Head is atraumatic and normocephalic. Eyes, normal. Neck: Supple. Lungs: Decreased breath sounds at the bases. No rales or rhonchi. Heart: S1, S2 regular. No gallops. Abdomen: Thin and soft. Extremities: No edema. /RECTAL: Not performed. IMPRESSION: 1. Severe hypertension. 2. Atrial fibrillation, rapid ventricular response, now in sinus rhythm. RECOMMENDATIONS: Continue amiodarone p.o. The patient's blood pressure is high, increasing the valsartan dose to 160 mg daily and monitor for any recurrence of arrhythmia. For now, continue diltiazem as well. Later on change it to 240 mg diltiazem CD. DT: 20:57:04 TT: 22:51:00 Ref: [id number] - TID: [id number]
[2024-12-25] VITALS (15 sets, daily range): BP systolic 154–168; BP diastolic 78–95; PULSE 65–104; RESP 16–90; TEMP 35.8–36.8; O2SAT 91–100; BMI 30.2
[2024-12-25] MEDS: hydrALAZINE HCL 25 MG TABLET 50 MG PO ×2 (05:14→20:32)
[2024-12-25] MEDS: DILTIAZEM 30 MG TABLET 60 MG PO (05:15)
[2024-12-25 06:08] LABS: Basophils # (Auto) 0.1 Thou/mm3 (0.0-0.2); Basophils % (Auto) 0 % (0-2.5); Eosinophils % (Auto) 0 % (0-10); Hematocrit 37.2 % (36.0-46.0); Hemoglobin 13.1 g/dL (12.0-16.0); Immature Granulocytes % (Auto) 6 % (0-0); Immature Granulocytes Auto 0.88 Thou/mm3 (0.00-0.00); Lymphocytes # (Auto) 0.4 Thou/mm3 (1.0-4.8); Lymphocytes % (Auto) 2 % (10-50); Mean Corpuscular HGB Conc 35.2 g/dl (31.0-37.0); Mean Corpuscular Volume 82 fL (80-100); Monocytes # (Auto) 1.7 Thou/mm3 (0.0-0.8); Monocytes % (Auto) 11 % (0-12); Neutrophils # (Auto) 12.6 Thou/mm3 (1.8-7.7); Neutrophils % (Auto) 81 % (37-80); Nucleated Red Blood Cell % 0 /100 WBC (0); Platelet Count 497 Thou/mm3 (140-440); RDW Standard Deviation 42.6 fL (36.4-46.3); Red Blood Count 4.52 Miln/mm3 (4.00-5.20); White Blood Count 15.6 Thou/mm3 (3.6-11.0)
[2024-12-25 06:24] LABS: Albumin, Serum 4.1 gm/dL (3.4-4.8); Anion Gap 10 (7-16); BUN/Creatinine Ratio 23 Ratio (12-20); Blood Urea Nitrogen 18 mg/dL (9-23); Calcium 10.9 mg/dL (8.3-10.6); Calcium (Corrected) 10.9 mg/dL (8.5-10.1); Carbon Dioxide 25.8 mMol/L (20.0-31.0); Chloride 95 mMol/L (98-107); Creatinine (Component) 0.8 mg/dL (0.6-1.3); Estimated Creatinine Clearance 56.2 mL/min (>60); Glucose 120 mg/dL (74-106); Osmolality,Calculated 265 (275-295); Phosphorous 1.9 mg/dL (2.4-5.1); Potassium 4.8 mMol/L (3.4-5.1); Sodium 131 mMol/L (136-145); eGFR > 60 See Note
[2024-12-25] MEDS: LEVALBUTEROL RT 0.63 MG/3 ML NEBU INH ×2 (07:07→19:21)
[2024-12-25] MEDS: IPRATROPIUM RT 0.5 MG/ 2.5 ML NEBU INH ×2 (07:07→19:21)
[2024-12-25] MEDS: AMIODARONE HCL 200 MG TABLET PO ×2 (09:40→20:32)
[2024-12-25] MEDS: APIXABAN 2.5 MG TABLET 5 MG PO ×2 (09:40→20:32)
[2024-12-25] MEDS: VALSARTAN 80 MG TABLET 160 MG PO ×2 (09:40→20:32)
[2024-12-25] MEDS: ASPIRIN EC 81 MG TABEC PO (09:40)
[2024-12-25] MEDS: FAMOTIDINE INJ 10 MG/ML VIAL 2 ML 20 MG IVP ×2 (09:41→20:36)
[2024-12-25] MEDS: cefTRIAXone/D5w 1gm IV premix 1 GM/50 ML BAG IV (09:41)
--- NOTE | 2024-12-25 11:58 | PD.NEPHPROG ---
Documentation for date of: 12/25/24 Subjective Subjective Interval history: Ms. Hernandez is a 74-year-old female with a past medical history of hypertension, hyper parathyroidism and COPD, brought to emergency by ambulance, complaining of severe nausea and inability to eat or drink. Patient reported that she has not eaten in 4 days . Reported having cough with excessive phlegm production and fever for the past few days, reported nausea but no vomiting, did report diarrhea, multiple loose stools per day but denied blood in stools. Patient had reached out to primary care physician yesterday about excessive cough and was prescribed amoxicillin, but became concerned when patient became too weak and more lethargic than her baseline. At the time of evaluation, patient was able to give a brief history of her symptoms, is able to follow simple commands and is alert and oriented. The patient was also complaining of fever and excessive cough, mucus production for the past few days, was given outpatient amoxicillin by PCP yesterday, but condition deteriorated, per the patient is more lethargic today. Was brought to the emergency room by ambulance. EMS found patient saturating 90% on room air started her on 3 L nasal cannula oxygen which improved O2 sats to 94%. Sepsis alert was called in the emergency room, IV antibiotics given, blood and sputum cultures ordered, 2 L IV fluid boluses given. Initial labs show leukocytosis, tachycardia heart rate in the 130s, likely secondary to sepsis, Pro-Skip elevated, lactic acid 1.7. 12/23/2024: Patient examined at bedside today. No acute overnight events. Patient reports she is doing well, denying any chest pain at this time. Says that her breathing is improving. Denies any recent sick contacts. No other complaints at this time. 12/24/2024: Bedside today. No acute overnight events. Patient reports he is doing well, however is seeing people with costumes and hearing as if there is a republican outside. at bedside says that she may be experiencing some delusions at this time. She reports that she has been eating well as well. Patient is still in atrial fibrillation reviewed on telemetry. Patient continues to be on amnio drip and Eliquis for anticoagulation. Magnesium 1.7, phosphorus 1.7, potassium 3.1, chloride 92, sodium 129, BUN/creatinine 15 and 0.8 respectively. No other complaints this time. 12/25/2024 patient currently seen in telemetry. Resting comfortably although complaining of hospital-acquired delirium. Heart rate seems to be stable blood pressure slightly on the higher side at 1 6481. WBC 15.6, hemoglobin 13.1, platelets 497. Sodium 131, potassium 4.8, creatinine 0.8, glucose 120, phosphorus 1.9, calcium 10.9 Review of Systems Review of Systems Narrative Review of Systems: CONSTITUTIONAL: Patient denies any fever, chills. HEENT: Denies any visual disturbances or hearing problems. CARDIOVASCULAR: Patient denies any chest pain, shortness of breath, swelling in the lower extremities. PULMONARY: Patient denies any shortness of breath, cough. GASTROINTESTINAL: Patient denies any abdominal pain, constipation, nausea, vomiting, diarrhea. GENITOURINARY: Patient denies any urinary symptoms of burning or frequency or hematuria, denies any form in the urine. SKIN: Denies any rash. MUSCULOSKELETAL: Denies any muscular skeletal problems of joint pains. NEUROLOGICAL: Denies any neurological problems of strokes, seizures.Denies any memory problems. PSYCHIATRIC: Denies any depression or anxiety. LYMPHATICS : No lymphadenopathy Patient seems to be slightly confused from delirium Exam Vital Signs Temp Pulse Resp BP Pulse Ox O2 Del Method O2 Flow Rate 36.2 C 65 19 165/81 H 100 Nasal Cannula 2 12/25/24 08:00 12/25/24 09:40 12/25/24 08:00 12/25/24 09:40 12/25/24 08:00 12/25/24 08:00 12/25/24 08:00 FiO2 78 12/25/24 07:07 Narrative Exam GENERAL APPEARANCE: Patient seems to be comfortable, adequately hydrated and nourished. HEENT: EOMI, PERRLA NECK: Neck supple, no JVD or bruit CARDIOVASCULAR: Heart regular, no murmurs LUNGS/CHEST: Chest clear to auscultation. No rales, rhonchi, wheezing ABDOMEN: Soft, nontender, nondistended. No masses. Normal bowel sounds. EXTREMITIES: No edema, clubbing or cyanosis. SKIN: Skin exam normal without any rashes MUSCULOSKELETAL: Musculoskeletal exam normal PSYCHIATRIC: Normal mood, affect LYMPHATICS: No lymphadenopathy noted NEUROLOGICAL : No neurological deficits Patient alert and awake although seems to be slightly confused Objective Labs 12/25/24 04:52 12/25/24 04:52 Labs: Laboratory Results - last 24 hr 12/25/24 04:52 WBC 15.6 H RBC 4.52 Hgb 13.1 Hct 37.2 MCV 82 MCH 29.0 MCHC 35.2 RDW Std Deviation 42.6 Plt Count 497 H D Neut % (Auto) 81 H Lymph % (Auto) 2 L [place] % (Auto) 11 Eos % (Auto) 0 Baso % (Auto) 0 Neut # (Auto) 12.6 H Lymph # (Auto) 0.4 L [place] # (Auto) 1.7 H Eos # (Auto) 0.0 Baso # (Auto) 0.1 Immature Gran # (Auto) 0.88 H Absolute Nucleated RBC 0.00 Immature Gran % 6 H Nucleated RBC % 0 Sodium 131 L Potassium 4.8 D Chloride 95 L Carbon Dioxide 25.8 Anion Gap 10 BUN 18 Creatinine 0.8 Estim Creat Clear Calc 56.2 L eGFR > 60 BUN/Creatinine Ratio 23 H Glucose 120 H D Calculated Osmolality 265 L Calcium 10.9 H Corrected Calcium 10.9 H Phosphorus 1.9 L Magnesium 2.0 Albumin 4.1 Assessment & Plan Assessment and plan (1) Sepsis: Status: Acute (2) Encephalopathy acute: Status: Acute (3) Hyponatremia with decreased serum osmolality: Status: Acute (4) NSTEMI (non-ST elevated myocardial infarction): Status: Acute (5) COPD exacerbation: Status: Acute (6) Transaminasemia: Status: Acute (7) Electrolyte imbalance: Status: Acute (8) Diarrhea: Status: Acute Additional Assessment & Plan Additional Plan: Suad is a 74 y/o female with PMHx of hypertension, parathyroid adenoma and COPD (not using home oxgen) who is admitted for AHRF 2/2 sepsis and COPD exacerbation. #Acute hypoxic respiratory failure #COPD exacerbation Will transition to p.o. prednisone, antibiotics. Off oxygen. Will plan for discharge tomorrow Sepsis resolved. Blood cultures negative. #New onset A-fib [id number]: 3 (need to determine if pt has HF, which could make her 4) HAS-BLED: Rate: 100s Rhythm: Irregularly irregular AC: Eliquis 5 mg BID Need to determine if this is paroxysmal Plan: ? Cardiology consulted, appreciate recs ? Will change to Cardizem 240 mg CD ? Finish Amio drip ? Eliquis 5 mg BID ? Keep magnesium and potassium above 2 and 4 respectively ? Telemetry ? Xopenex and Atrovent for above #Hospital acquired delirium Within the first 48 hours Patient is only receiving 40 mg of steroid, unlikely to cause delirium Patient seems to be experiencing visual hallucinations as well Plan: ? Melatonin at bedtime ? Bed to chair ? Avoid Added Seroquel. Gave 1 dose of Ativan IV right now #Hypertension Chronic LDL 52, total cholesterol 92 A1c 5.4 Plan: ? Valsartan 160 mg by mouth every day ? Cardizem 240 CD ? Cardiac stratification #Hypoosmolar hypovolemic hyponatremia, improving Likely related to GI losses Na 1 Plan: ? Trend with CMP #Electrolyte imbalances-hypercalcemia/hypophosphatemia from primary hyper para. Resume [place] #Hypomagnesemia #Hypophosphatemia #Hypokalemia Likely related to GI losses and scheduled breathing tx Plan: ? K-Phos IV 22.5 x 1 ? 40 mill equivalents of oral potassium now and at 2 PM ? 2 g magnesium IV ? Neutra-Phos 2 packets #Elevated transaminases, improving DDx: shock liver, infectious related or underlying [place] component AST 103 -> 129 ALT 44 -> 57 Liver US unremarkable Plan: ? Trend CMP ? Treat underlying infection as above #Diarrhea, improving Plan: ? Follow-up stool for WBCs ? Strict I's and O's, continue antibiotics, monitor for dehydration. #Elevated TSH and Free thyroxine #History of parathyroid adenoma #History of thyroid nodules TSH 0.5; Free T4 1.8, unsure why T4 is janki okay tovated Seen on ultrasound in 2018 Plan: ? Consider rechecking TSH and T4 #Acute encephalopathy, resolved #NSTEMI type II, likely related to demand ischemia, resolved #Health Maintenance Disposition: Telemetry DVT prophylaxis: Eliquis GI prophylaxis: Pepcid Diet: Renal CODE STATUS: Full plan of care discussed with , son at bedside. Discharge planning tomorrow (1) Sepsis Qualifiers: Sepsis acute organ dysfunction status: with acute organ dysfunction Sepsis type: sepsis due to unspecified organism Severe sepsis acute organ dysfunction type: encephalopathy
[2024-12-25] MEDS: DILTIAZEM CD 120 MG CAPCR 240 MG PO (12:46)
[2024-12-25] MEDS: LORazepam 2 MG/ML VIAL 1 MG IVP (12:52)
[2024-12-25] MEDS: CINACALCET HCL 30 MG TABLET (NON-FORM) PO (12:53)
[2024-12-25] MEDS: NAPH,KPH MBDB 1 PACKET (1.5 GM) PO ×2 (12:57→20:36)
--- NOTE | 2024-12-25 19:53 | ESPR_ITS ---
RE: SUAD SANCHEZ : 1950 DATE OF SERVICE: 12/25/2024 SUBJECTIVE: Suad Sanchez was admitted to the hospital for pneumonia, had atrial with fibrillation RVR, responding well to amiodarone. She was doing well. Her blood pressure continues to be slightly high despite multiple medications, including diltiazem CD and multiple other medications. She is on valsartan 160 mg daily, still not controlled well. OBJECTIVE: Vital Signs: Blood pressure 168/78 mmHg, pulse rate 81. Neck: Supple. Lungs: Decreased breath sounds. Heart: S1, S2, regular. Sinus rhythm. Abdomen: Thin and soft. Extremities: No edema. IMPRESSION: 1. The patient had hypertension, not controlled. 2. Atrial fibrillation, controlled. 3. Pneumonia, receiving antibiotics. RECOMMENDATIONS: 1. Increase valsartan to 160 mg twice daily. 2. Continue amiodarone, diltiazem, and Eliquis. DT: 18:00:56 TT: 19:51:00 Ref: [id number] - TID: [id number]
[2024-12-25] MEDS: QUEtiapine FUMARATE 25 MG TABLET PO (20:33)
[2024-12-25] MEDS: MELATONIN 3 MG TABLET PO (20:33)
[2024-12-25] MEDS: AZITHROMYCIN INJ 500 MG in SODIUM CHLORIDE 0.9% 250 ML 250 ML 100 MG IV (20:36)
--- NOTE | 2024-12-25 20:37 | PC.NURSE ---
Family requested 2200 meds early so patient can sleep
[2024-12-26] VITALS (12 sets, daily range): BP systolic 149–153; BP diastolic 73–83; PULSE 74–116; RESP 16–90; TEMP 35.9–36.4; O2SAT 90–97; BMI 30.2
[2024-12-26 05:59] LABS: Basophils % (Auto) 0 % (0-2.5); Eosinophils % (Auto) 0 % (0-10); Hematocrit 34.4 % (36.0-46.0); Hemoglobin 11.8 g/dL (12.0-16.0); Immature Granulocytes % (Auto) 6 % (0-0); Immature Granulocytes Auto 0.75 Thou/mm3 (0.00-0.00); Lymphocytes # (Auto) 0.6 Thou/mm3 (1.0-4.8); Lymphocytes % (Auto) 5 % (10-50); Mean Corpuscular HGB Conc 34.3 g/dl (31.0-37.0); Mean Corpuscular Hemoglobin 28.6 pg (25.0-35.0); Mean Corpuscular Volume 84 fL (80-100); Monocytes # (Auto) 1.4 Thou/mm3 (0.0-0.8); Monocytes % (Auto) 11 % (0-12); Neutrophils # (Auto) 9.9 Thou/mm3 (1.8-7.7); Neutrophils % (Auto) 78 % (37-80); Nucleated Red Blood Cell % 0 /100 WBC (0); Platelet Count 384 Thou/mm3 (140-440); RDW Standard Deviation 44.3 fL (36.4-46.3); Red Blood Count 4.12 Miln/mm3 (4.00-5.20); White Blood Count 12.7 Thou/mm3 (3.6-11.0)
[2024-12-26 06:21] LABS: Albumin, Serum 3.6 gm/dL (3.4-4.8); Anion Gap 7 (7-16); BUN/Creatinine Ratio 29 Ratio (12-20); Blood Urea Nitrogen 23 mg/dL (9-23); Calcium (Corrected) 10.3 mg/dL (8.5-10.1); Carbon Dioxide 26.7 mMol/L (20.0-31.0); Chloride 99 mMol/L (98-107); Creatinine (Component) 0.8 mg/dL (0.6-1.3); Estimated Creatinine Clearance 56.2 mL/min (>60); Glucose 107 mg/dL (74-106); Magnesium 1.9 mg/dL (1.6-2.6); Osmolality,Calculated 270 (275-295); Phosphorous 2.6 mg/dL (2.4-5.1); Potassium 4.9 mMol/L (3.4-5.1); Sodium 133 mMol/L (136-145); eGFR > 60 See Note
[2024-12-26] MEDS: IPRATROPIUM RT 0.5 MG/ 2.5 ML NEBU INH ×2 (06:28→14:26)
[2024-12-26] MEDS: LEVALBUTEROL RT 0.63 MG/3 ML NEBU INH ×2 (06:28→14:26)
--- NOTE | 2024-12-26 09:10 | PD.RESDS ---
Planned Discharge Date 12/26/24 DS: Providers Provider Date of admission: 12/22/24 17:59 Primary care physician: Julien Costa MD Admitting Provider: Julien Costa MD Attending Provider on Admission: Julien Costa MD Consults: 12/22/24 18:00 Referral Physical Therapy Routine Comment: Physician Instructions: 12/23/24 08:51 Consult to Cardiology Routine Comment: Consulting Provider: Darleen Myles Attending Provider on DC: Julien Costa MD Discharging Provider: Julien Costa MD DS: Diagnosis Problem List Completed Was Problem List Reviewed/Reconciled?: Yes Hospital Course Hospital Course Hospital course: Suad is a 74-year-old female with a past medical history of hypertension, hyperparathyroidism and COPD who was admitted to [facility] on 12/22/2024 for AHRF 2/2 COPD exacerbation and CAP. Pt was brought to the ED by ambulance and pt was found to EMS found patient saturating 90% on room air started her on 3 L nasal cannula oxygen which improved O2 sats to 94%. Sepsis alert was called in the emergency room, IV antibiotics given, blood and sputum cultures ordered, 2 L IV fluid boluses given. Initial labs show leukocytosis, tachycardia heart rate in the 130s, likely secondary to sepsis, Pro-Skip elevated, lactic acid 1.7. Pt was then admitted for further management. Upon the floors patient was treated with antibiotics, pulmonary hygiene, and steroids. Patient then developed new onset A-fib with RVR. Cardiology was consulted and echocardiogram was done which showed HFrEF ejection fraction 40 to 45% and grade 1 diastolic dysfunction. Patient was initially put on Cardizem oral, however patient went into RVR and was then put on amnio drip. Patient continued to improve and was recommended to continue with Cardizem and oral Amio as patient continued to have uncontrolled hypertension. Patient was also started on ARB which helped control patient's blood pressure. Patient also started develop some delirium while in the hospital, and sundowning measures and ambulation orders were implemented which improved patient's delirium. Patient continued to desaturate below 88% while in bed and home oxygen was thus ordered for patient. Patient also had liver ultrasound done due to elevated transaminases which was unremarkable. Patient was then discharged with the following instructions. Discharge Instructions: Follow-up with your vice president education within 1 to 2 weeks, Dr. Myles Follow-up with your primary care doctor, Dr. Costa within 1 week Take your new medicine called Eliquis, a blood thinner as directed as this is for your atrial fibrillation Finish your steroid medicine Prednisone as prescribed Finish your antibiotic medicine, Azithromycin as prescribed Continue to take Amiodarione and Cardizem as these medicines are for controlling your heart rate and atrial fibrillation Abstain from smoking Continue to take your medicines as prescribed Return to ER if your symptoms worsen or return Problem List: #Acute hypoxic respiratory failure #COPD exacerbation #Sepsis, ruled out #New onset A-fib #Hospital acquired delirium #Hypertension #Hypoosmolar hypovolemic hyponatremia #Primary hyperparathyroidism #Hypercalcemia #Hypomagnesemia #Hypophosphatemia #Hypokalemia #Elevated transaminases #Diarrhea #Elevated TSH and Free thyroxine #History of parathyroid adenoma #History of thyroid nodules #Acute encephalopathy, resolved #NSTEMI type II, likely related to demand ischemia, resolved Patient seen and care discussed with my attending physician, Dr. Julissa Saxena, PGY-1 Time Spent with Patient Time attestation: Total time spent providing and/or coordinating discharge services: Time spent: Greater than 30 minutes Home Health Home Health Referral Orders: 12/25/24 12:16 Home Health Referral Routine Reason For Exam: gait imbalance Home-Bound The patient must either because of illness or injury, need the aid of supportive devices such as crutches, canes, wheelchairs, and walkers; the use of special transportation; or the assistance of another person in order to leave their place of residence; OR have a condition such that leaving his or her home is medically contraindicated. In addition, the patient also meets the following criteria: patient is normally unable to leave the home and leaving home requires considerable taxing effort. Addendum to Home Health Certification Practitioner's Certification: I certify that the patient has been under my care in the hospital and the care of attending physician (see below). We had a [id number] encounter on (see date below). My clinical findings indicate that the patient is home bound per the above criteria and the Home Health Services noted in these orders are medically necessary. The primary reason for the [id number]-[id number] encounter is related to the fact that the patient requires home health services. Date Certifying Rndg-uj-Odtd Physician Encounter: 12/25/24 Physician's Name who will Assume Oversight for Services: Julien Costa Physician's Phone No.who will Assume Oversight for Service: PULMONARY NURSE PRACTITIONER - Community Resources: No PT to Evaluate: Yes PT to evaluate and provide a treatmnet plan to increase patient's mobility and strength. Wound Care: No IV Therapy: No RN Safety Evaluation: Yes RN to evaluate and create a plan of care that will produce positive outcomes. Palliative Treatment: No Palliative treatment and evaluate the need for hospice. Home Health Aide - Personal Care: No Home Health Aide to assist with any ADL's. Exam Vital Signs Temp Pulse Resp BP Pulse Ox O2 Del Method O2 Flow Rate 97.6 F 98 20 149/75 H 90 L Room Air 2 12/26/24 08:00 12/26/24 08:00 12/26/24 08:00 12/26/24 08:00 12/26/24 08:00 12/26/24 08:00 12/26/24 00:00 FiO2 78 12/26/24 00:00 Narrative Exam General: AAOx3, NAD, overweight female, a bit unkempt HEENT: Moist mucous membranes, conjunctiva clear, EOMI, PERRLA, Cardiovascular: S1, S2, radial pulses +2 bilat, irregularly irregular pulm:, possible Ejection systolic murmur Pulmonary: Some wheezing heard on ausculation GI: No tenderness to light or deep palpitation, no guarding, rigidity, rebound tenderness or distension Extremities: No presence of trace or pitting edema in lower extremities bilaterally, dorsalis pedis pulses +2 bilaterally Neuro: AAOx3, no focal motor or sensory deficits in the UE or LE bilat Psych: Good judgement, thought and behavior Discharge Plan Plan Patient Disposition: Home w/HOME HEALTH Patient condition on transfer: Stable Care Plan Goals: Discharge Instructions: Follow-up with your vice president education within 1 to 2 weeks, Dr. Myles Follow-up with your primary care doctor, Dr. Costa within 1 week Take your new medicine called Eliquis, a blood thinner as directed as this is for your atrial fibrillation Finish your steroid medicine Prednisone as prescribed Finish your antibiotic medicine, Azithromycin as prescribed Continue to take Amiodarione and Cardizem as these medicines are for controlling your heart rate and atrial fibrillation Abstain from smoking Continue to take your medicines as prescribed Return to ER if your symptoms worsen or return Prescriptions/Referrals Prescriptions/Med Rec: New prednisone 20 mg Tablet 20 mg PO QDAY Qty: 5 0RF benazepril 20 mg tablet 20 mg PO QDAY Qty: 30 0RF amiodarone 200 mg Tablet 200 mg PO BID Qty: 60 0RF Eliquis 2.5 mg Tablet 5 mg PO BID Qty: 60 0RF azithromycin 500 mg tablet 500 mg PO QDAY 3 Days Qty: 3 0RF diltiazem HCl [Cardizem CD] 240 mg capsule,extended release 24hr 240 mg PO QAM Qty: 30 0RF Continued atorvastatin [Lipitor] 10 MG tablet 10 mg PO HS Qty: 0 lorazepam 0.5 MG tablet 0.5 mg PO DAILY Qty: 30 budesonide-formoterol [Symbicort] 80-4.5 mcg/actuation HFA aerosol inhaler 2 puff INHALATION Q12H Patient Comments: TAKE 2 PUFFS BY MOUTH TWICE A DAY clonidine HCl 0.1 mg tablet 0.1 mg PO BID Patient Comments: TAKE 1 TABLET BY MOUTH TWICE A DAY cyclobenzaprine 5 mg tablet 5 mg PO HS Patient Comments: TAKE 1 TABLET BY MOUTH EVERY DAY AT BEDTIME NEEDED cinacalcet 30 mg tablet 30 mg PO QDAY Patient Comments: TAKE 1 TABLET BY MOUTH EVERY DAY Discontinued Benazepril Hcl/Hctz 20-12.5 * (LOTENSIN HCT 20-12.5 *) 1 TAB tablet 1 tab PO BID Qty: 30 Referrals: Julien Costa MD [Primary Care Provider] - Patient/Caregiver Discharge Instructions Discharge Activity: activity as tolerated Education Materials: COPD: Coping with Fatigue, COPD Meds, Understanding Atrial Fibrillation Print Language: Bahamian Activity Restrictions/Additional Instructions: Follow-up with Dr. Nguyễn in 1 to 2 weeks Follow-up with Dr. Costa in 1-2 Stand Alone Forms: Mara Award Info., Patient Portal Info Letter Discharge Order Discharge Orders: Discharge (Routine); Ordered 12/26/24 Ordered By: Julien Costa Quality Discharge Quality Measures VTE prophylaxis (Eliquis) Attestestation MD Attestation Patient seen and examined with resident physician Dr. Trinidad. Note reviewed, agree with findings and recommendations. Patient will be discharged home with oxygen
[2024-12-26] MEDS: FAMOTIDINE INJ 10 MG/ML VIAL 2 ML 20 MG IVP (09:15)
[2024-12-26] MEDS: cefTRIAXone/D5w 1gm IV premix 1 GM/50 ML BAG IV (09:15)
[2024-12-26] MEDS: AMIODARONE HCL 200 MG TABLET PO (09:15)
[2024-12-26] MEDS: predniSONE 20 MG TABLET PO (09:16)
[2024-12-26] MEDS: NAPH,KPH MBDB 1 PACKET (1.5 GM) PO (09:16)
[2024-12-26] MEDS: APIXABAN 2.5 MG TABLET 5 MG PO (09:16)
[2024-12-26] MEDS: DILTIAZEM CD 120 MG CAPCR 240 MG PO (09:16)
[2024-12-26] MEDS: VALSARTAN 80 MG TABLET 160 MG PO (09:16)
[2024-12-26] MEDS: ASPIRIN EC 81 MG TABEC PO (09:17)
[2024-12-26] MEDS: CINACALCET HCL 30 MG TABLET (NON-FORM) PO (09:20)
--- NOTE | 2024-12-26 10:39 | ESPR_ITS ---
RE: SUAD SANCHEZ : 1950 DATE OF SERVICE: 12/26/2024 SUBJECTIVE: Suad Sanchez appears to be doing better today. She was admitted to hospital with pneumonia and COPD. She appears to be in sinus rhythm, not having any shortness of breath or chest pain. Blood pressure is controlled well. She is quite stable medically overall. OBJECTIVE: Vital Signs: Blood pressure 149/70 mmHg and pulse 98. Neck: Supple. Lungs: Decreased breath sounds. No rales or rhonchi. Heart: S1 and S2 regular. No gallops. Abdomen: Thin and soft. Extremities: No edema. LABORATORY DATA: Unremarkable. ASSESSMENT: Paroxysmal atrial fibrillation, now in sinus rhythm. RECOMMENDATIONS: 1. Continue amiodarone and diltiazem valsartan for hypertension. 2. We will see her followup in my office following discharge in 2 weeks. DT: 10:03:35 TT: 10:35:00 Ref: [id number] - TID: [id number]
--- NOTE | 2024-12-26 10:45 | PC.SS ---
SCALING MACHINE OPERATOR informed bedside nurse of need to conduct room air evaluation on behalf of the patient to confirm need for home oxygen.
--- NOTE | 2024-12-26 10:55 | PC.SS ---
Oxygen Pt is discharged in a chronic stable state and has been treated optimally and has other respiratory needs. Oxygen has been ordered due to COPD.
--- NOTE | 2024-12-26 11:28 | PC.NURSE ---
patient oxygen saturation at rest 84%, o2sats @ 2 liters 93%, patient unable to stand up and ambulate.
[2024-12-26] MEDS: Magnesium Sulfate 1 gm Ivpb 1 GM/100 ML BAG IV (11:59)
--- NOTE | 2024-12-26 12:55 | PC.SS ---
DME referral submitted on [facility] for oxygen. Responses pending. Patient possesses Medicare, no authorization required.
[2024-12-26] MEDS: hydrALAZINE HCL 25 MG TABLET 50 MG PO (13:43)
--- NOTE | 2024-12-26 14:37 | PC.SS ---
Home oxygen delivered by [facility].
--- NOTE | 2024-12-27 16:57 | PC.CC ---
Addendum entered by Yue Watters RN 12/27/24 19:05: [facility] accepted the pt. Booked Michelle. Start of care date is 12/29/24. Original Note: No preferred agency as per SS notes. HH referral sent to Michelle on [facility]. Awaiting responses. Pending start of care date.
== END 2024-12-26 16:03 | disposition home health service (06) | DRG 190 ==
LOC: SERX 17:22 → SERHOLD 18:16 → S2NX 23:07
PROVIDERS: Nurse Practitioner Family; Student in an Organized Health Care Education/Training Program; Admitting Provider Internal Medicine; Emergency Provider Emergency Medicine; PCP Internal Medicine; Visit Provider Internal Medicine
DX: J44.1 Chronic obstructive pulmonary disease with (acute) exacerbation (principal); G92.8 Other toxic encephalopathy; I21.A1 Myocardial infarction type 2; J18.9 Pneumonia, unspecified organism; J96.01 Acute respiratory failure with hypoxia; E87.1 Hypo-osmolality and hyponatremia; E22.2 Syndrome of inappropriate secretion of antidiuretic hormone; I50.20 Unspecified systolic (congestive) heart failure; F05 Delirium due to known physiological condition; I47.20 Ventricular tachycardia, unspecified; J44.0 Chronic obstructive pulmonary disease with (acute) lower respiratory infection; F17.200 Nicotine dependence, unspecified, uncomplicated; E83.42 Hypomagnesemia; R74.01 Elevation of levels of liver transaminase levels; E83.39 Other disorders of phosphorus metabolism; E87.6 Hypokalemia; R19.7 Diarrhea, unspecified; I11.0 Hypertensive heart disease with heart failure; I48.0 Paroxysmal atrial fibrillation; E83.52 Hypercalcemia; I49.40 Unspecified premature depolarization; E86.1 Hypovolemia; E04.2 Nontoxic multinodular goiter; E21.0 Primary hyperparathyroidism; Z79.01 Long term (current) use of anticoagulants; Z79.899 Other long term (current) drug therapy; Z90.710 Acquired absence of both cervix and uterus; Z88.0 Allergy status to penicillin
CPT/HCPCS: 36415; 71045; 76705; 80048; 80053; 80061; 80069; 80076; 81001; 82436; 83036; 83605; 83615; 83690; 83735; 83880; 84100; 84133; 84145; 84295; 84300; 84439; 84443; 84484; 85025; 85610; 85730; 87040; 87081; 87086; 87205; 87400; 87502; 87811; 89220; 93005; 93306; 94640; 96365; 96366; 96367; 96375; 97162; 99285; J0283; J0360; J0456; J0604; J0696; J1650; J2060; J2919; J3475; J3490; J7040; J7050; J7120; J7512; J7999; A9270

== ENCOUNTER → 2025-03-24 | Outpatient (CLI) | payer MEDICARE, BC, SELFPAY ==
[2025-03-24 09:04] LABS: Collection Type, Urine Clean Catch
[2025-03-24 09:30] LABS: Basophils # (Auto) 0.1 Thou/mm3 (0.0-0.2); Basophils % (Auto) 1 % (0-2.5); Eosinophils # (Auto) 0.0 Thou/mm3 (0.0-0.5); Eosinophils % (Auto) 0 % (0-10); Hematocrit 38.1 % (36.0-46.0); Hemoglobin 12.1 g/dL (12.0-16.0); Immature Granulocytes Auto 0.01 Thou/mm3 (0.00-0.00); Lymphocytes # (Auto) 1.0 Thou/mm3 (1.0-4.8); Lymphocytes % (Auto) 22 % (10-50); Mean Corpuscular HGB Conc 31.8 g/dl (31.0-37.0); Mean Corpuscular Hemoglobin 28.3 pg (25.0-35.0); Mean Corpuscular Volume 89 fL (80-100); Monocytes # (Auto) 0.7 Thou/mm3 (0.0-0.8); Monocytes % (Auto) 16 % (0-12); Neutrophils # (Auto) 2.8 Thou/mm3 (1.8-7.7); Neutrophils % (Auto) 60 % (37-80); Nucleated Red Blood Cell # 0.00 Thou/mm3 (0.00-0.00); Nucleated Red Blood Cell % 0 /100 WBC (0); Platelet Count 393 Thou/mm3 (140-440); RDW Standard Deviation 45.1 fL (36.4-46.3); Red Blood Count 4.27 Miln/mm3 (4.00-5.20); White Blood Count 4.6 Thou/mm3 (3.6-11.0)
[2025-03-24 09:36] LABS: Bilirubin,Urine Negative (Negative); Blood,Urine Negative (Negative); Clarity,Urine Clear (Clear/Hazy); Color,Urine Lt-Yellow (Lt Yel-Yel); Glucose, Urine Negative (Negative); Ketones,Urine Negative (Negative); Leukocyte Esterase,Urine Negative (Negative); Nitrite,Urine Negative (Negative); PH,Urine 7.0 (5.0-7.0); Protein,Urine Negative (Neg - Trace); RBC,Urine 2 /hpf (0-3); Specific Gravity,Urine 1.011 (1.001-1.035); Squamous Epithelial Cell,Urine < 1 /hpf (0-5); Urobilinogen,Urine Negative mg/dL (0.0-1.0); WBC,Urine < 1 /hpf (0-5)
[2025-03-24 09:45] LABS: Parathyroid Hormone Intact 89.7 pg/ml (18.5-88.0)
[2025-03-24 09:52] LABS: Alanine Aminotransferase 76 U/L (10-49); Albumin, Serum 4.6 gm/dL (3.4-4.8); Albumin/Globulin Ratio 2.0 (1.2-2.2); Alkaline Phosphatase 115 U/L (46-116); Anion Gap 10 (7-16); Aspartate Amino Transferase 68 U/L (0-34); BUN/Creatinine Ratio 10 Ratio (12-20); Bilirubin,Total 0.5 mg/dL (0.3-1.2); Blood Urea Nitrogen 10 mg/dL (9-23); Calcium 9.5 mg/dL (8.3-10.6); Calcium (Corrected) 9.5 mg/dL (8.5-10.1); Carbon Dioxide 27.3 mMol/L (20.0-31.0); Cardiac Risk Estimate 2.1 RATIO (3.7-5.6); Chloride 99 mMol/L (98-107); Cholesterol 175 mg/dL (132-200); Creatinine (Component) 1.0 mg/dL (0.6-1.3); Globulin 2.3 gm/dL (2.3-3.5); Glucose 102 mg/dL (74-106); HDL Cholesterol 83 mg/dL (40-60); LDL Cholesterol,Calculated 81 mg/dL (0-130); Osmolality,Calculated 270 (275-295); Potassium 4.5 mMol/L (3.4-5.1); Sodium 136 mMol/L (136-145); Thyroid Stimulating Hormone 2.91 uIU/mL (0.55-4.78); Total Protein 6.9 gm/dL (5.7-8.2); Triglycerides 57 mg/dL (30-150); eGFR 59 See Note
== END | disposition home or self-care (01) ==
LOC: COPL 07:33
PROVIDERS: PCP Internal Medicine; Referring Provider Internal Medicine; Visit Provider Internal Medicine
DX: I10 Essential (primary) hypertension (principal); E78.5 Hyperlipidemia, unspecified; E21.0 Primary hyperparathyroidism
CPT/HCPCS: 36415; 80053; 80061; 81001; 83970; 84443; 85025